=== PATIENT | male | born 1940 | race Caucasian/White ===

== ENCOUNTER 2019-10-25 08:32 | Inpatient (IN) ==
[2019-10-25] MEDS ORDERED: Morphine Sulfate 2 MG/ML SYRINGE IVP ONE (08:44)
[2019-10-25] MEDS ORDERED: 0.9 % Sodium Chloride 1,000 ML IVC ONE (08:44)
[2019-10-25] MEDS ORDERED: Isovue-370 500 ML BOTTLE IVP ONE (08:46)
[2019-10-25 09:35] LABS: Basophils % 0.2 %; Hematocrit 44.5 % (37.5-50.1); Immature Granulocytes % 0.3 % (0-4); Lymphocytes # 0.3 K/mcL (0.6-4.6); Lymphocytes % 4.8 %; Mean Corpuscular HGB Conc 33.7 g/dL (31.6-35.5); Mean Corpuscular Hemoglobin 29.2 pg (28.0-33.3); Mean Corpuscular Volume 86.7 fL (83.0-100.0); Mean Platelet Volume 10.2 fL (9.4-12.4); Monocytes # 0.4 K/mcL (0.0-1.3); Monocytes % 6.5 %; Neutrophils # 5.2 K/mcL (1.6-8.9); Platelet Count 233 K/mcL (140-400); Red Blood Count 5.13 M/mcL (4.19-5.50); Red Cell Distribution Width 14.2 % (11.5-14.5); Segmented Neutrophils % 88.2 %; White Blood Count 5.8 K/mcL (4.3-11.1)
[2019-10-25 09:35] LABS: Bacteria,Urine Few per hpf (None-Few); Bilirubin,Urine Negative (Negative); Blood,Urine Negative (Negative); Clarity,Urine Clear (Clear); Color,Urine Light-Orange (Yellow); Glucose,Urine (UA) >=1000 mg/dL (Normal); Granular Casts,Urine Few per lpf (None Seen); Ketones,Urine 60 mg/dL (Negative); Leukocyte Esterase,Urine Negative (Negative); Nitrite,Urine Negative (Negative); PH,Urine 5.5 pH Units (5.0-8.0); Protein,Urine 30 mg/dL (Neg-Trace); RBC,Urine 0-3 per hpf (0-3); Specific Gravity,Urine > 1.030 (1.010-1.025); WBC,Urine 0-3 per hpf (0-3)
[2019-10-25 09:38] LABS: VBG HCO3 23 mEq/L (21-27); VBG PCO2 36 mmHg (41-51); VBG PH 7.41 pH Units (7.32-7.42); VBG PO2 172 mmHg (25-50)
[2019-10-25 09:42] LABS: Prothrombin Time 22.6 Seconds (9.4-12.1)
[2019-10-25 09:45] LABS: Activated Partial Thrombo Time 46.1 Seconds (26.0-36.0)
[2019-10-25 10:16] LABS: Troponin I < 0.03 ng/mL (< 0.04)
[2019-10-25 10:19] LABS: Lipase 9 Units/L (11-82)
[2019-10-25 11:01] LABS: Alanine Aminotransferase 11 Units/L (7-52); Albumin 3.4 g/dL (3.5-5.7); Albumin/Globulin Ratio 1.1 (1.1-2.2); Alkaline Phosphatase 60 Units/L (34-104); Aspartate Amino Transferase 14 Units/L (13-39); BUN/Creatinine Ratio 24 (6-26); Bilirubin,Direct 1.4 mg/dL (0.0-0.2); Bilirubin,Indirect 2.8 mg/dL (0.0-1.0); Bilirubin,Total 4.2 mg/dL (0.3-1.0); Blood Urea Nitrogen 23 mg/dL (8-23); Calcium 9.3 mg/dL (8.6-10.3); Carbon Dioxide 24 mEq/L (23-29); Chloride 102 mEq/L (98-107); Glucose 166 mg/dL (70-105); Osmolality,Calculated 291 (280-300); Potassium 3.8 mEq/L (3.5-5.1); Sodium 137 mEq/L (136-145); Total Protein 6.4 g/dL (6.4-8.9); eGFR For African Americans > 60 (> 60); eGFR For Non-African Americans > 60 (> 60)
[2019-10-25] MEDS ORDERED: Vancomycin 1,750 MG/517.5 ML IV.SOLN IVPB ONE (11:54)
[2019-10-25] MEDS ORDERED: Piperacillin/Tazobactam 3.375 GM in 0.9 % Sodium Chloride Mini Bag 100 ML IVPB ONE (11:54)
[2019-10-25] MEDS ORDERED: CefOXitin 1,000 MG VIAL ONE (13:58)
[2019-10-25] MEDS ORDERED: *HR* Midazolam HCl 2 MG/2 ML VIAL ONE (15:06)
[2019-10-25] MEDS ORDERED: Lidocaine -MPF 1% 5 ML AMPUL ONE (15:06)
[2019-10-25] MEDS ORDERED: *HR* Propofol 200 MG/20 ML VIAL IVP ONE (15:06)
[2019-10-25] MEDS ORDERED: *HR* FentaNYL (PF) 100 MCG/2 ML VIAL ONE ×3 (15:06→15:29)
[2019-10-25] MEDS ORDERED: *HR* Rocuronium Bromide 50 MG/5 ML VIAL ONE (16:00)
[2019-10-25] MEDS ORDERED: *HR* Remifentanil 2 MG VIAL IVP ONE (16:06)
[2019-10-25 16:10] LABS: INR 1.3; Prothrombin Time 14.9 Seconds (9.4-12.1)
[2019-10-25] MEDS ORDERED: Ondansetron 4 MG/2 ML VIAL ONE (16:26)
[2019-10-25] MEDS ORDERED: Dexamethasone 4 MG/ML VIAL ONE (16:26)
[2019-10-25] MEDS ORDERED: *HR* HYDROMORPHONE 2 MG/ML VIAL ONE (16:40)
[2019-10-25] MEDS ORDERED: *HR* Labetalol 20 MG/4 ML SYRINGE IVP ONE (17:35)
[2019-10-25] MEDS ORDERED: *HR* Dextrose 50 % in Water (Vial) 50 ML VIAL IVP PRN (17:45)
[2019-10-25] MEDS ORDERED: Dextrose Gel 15 GM/37.5 ML TUBE PO PRN ×2 (17:45)
[2019-10-25] MEDS ORDERED: *HR* Labetalol 20 MG/4 ML SYRINGE IVP PRN (17:45)
[2019-10-25] MEDS ORDERED: D5% in Water 1,000 ML IVC PRN (17:45)
[2019-10-25] MEDS ORDERED: Acetaminophen IV 1,000 MG/100 ML BAG IVPB PRN (17:45)
[2019-10-25] MEDS ORDERED: Fluticasone Propionate Nasal 50 MCG/SPRAY BOTTLE NS PRN (17:49)
[2019-10-25] MEDS ORDERED: *HR* Heparin 5,000 UNIT/ML VIAL SQ SCH (18:00)
[2019-10-25] MEDS ORDERED: Vancomycin 1,750 MG in 0.9 % Sodium Chloride 250 ML IVPB SCH (18:00)
[2019-10-25] MEDS: *HR* Metoprolol 5 MG/5 ML VIAL IVP PRN ×2 (18:04→22:30)
[2019-10-25] MEDS: 0.9 % Sodium Chloride 1,000 ML IVC SCH ×2 (18:14→20:30)
[2019-10-25] MEDS: Micafungin 100 MG in 0.9 % Sodium Chloride Mini Bag 100 ML IVPB SCH (18:14)
[2019-10-25] MEDS: *HR* Heparin 5,000 UNIT/ML VIAL SQ SCH (18:15)
[2019-10-25] MEDS: Insulin LISPRO 300 UNITS/3 ML VIAL SQ SCH ×2 (19:52→23:24)
[2019-10-25] MEDS: Piperacillin/Tazobactam 3.375 GM in 0.9 % Sodium Chloride Mini Bag 100 ML IVPB SCH (20:01)
[2019-10-25] MEDS ORDERED: Perflutren Lipid Microsphere 1.3 ML in 0.9 % Sodium Chloride 8.7 ML IVP ONE (21:14)
[2019-10-26] MEDS ORDERED: Vancomycin 1,500 MG/265 ML IV.SOLN IVPB SCH (01:00)
[2019-10-26] MEDS: Piperacillin/Tazobactam 3.375 GM in 0.9 % Sodium Chloride Mini Bag 100 ML IVPB SCH ×3 (03:38→19:50)
[2019-10-26] MEDS: Insulin LISPRO 300 UNITS/3 ML VIAL SQ SCH ×6 (03:40→23:24)
[2019-10-26 03:56] LABS: Basophils % 0.1 %; Hematocrit 41.1 % (37.5-50.1); INR 1.4; Immature Granulocytes % 0.3 % (0-4); Lymphocytes # 0.7 K/mcL (0.6-4.6); Lymphocytes % 9.6 %; Mean Corpuscular HGB Conc 31.6 g/dL (31.6-35.5); Mean Corpuscular Hemoglobin 28.3 pg (28.0-33.3); Mean Corpuscular Volume 89.5 fL (83.0-100.0); Mean Platelet Volume 9.8 fL (9.4-12.4); Monocytes # 0.4 K/mcL (0.0-1.3); Monocytes % 5.9 %; Neutrophils # 6.1 K/mcL (1.6-8.9); Platelet Count 246 K/mcL (140-400); Prothrombin Time 16.3 Seconds (9.4-12.1); Red Blood Count 4.59 M/mcL (4.19-5.50); Red Cell Distribution Width 14.7 % (11.5-14.5); Segmented Neutrophils % 84.1 %; White Blood Count 7.3 K/mcL (4.3-11.1)
[2019-10-26 03:59] LABS: Activated Partial Thrombo Time 33.9 Seconds (26.0-36.0)
[2019-10-26 04:06] LABS: Alanine Aminotransferase 11 Units/L (7-52); Albumin/Globulin Ratio 1.1 (1.1-2.2); Alkaline Phosphatase 49 Units/L (34-104); Aspartate Amino Transferase 11 Units/L (13-39); BUN/Creatinine Ratio 31 (6-26); Bilirubin,Direct 0.9 mg/dL (0.0-0.2); Bilirubin,Total 2.9 mg/dL (0.3-1.0); Blood Urea Nitrogen 26 mg/dL (8-23); Calcium 9.1 mg/dL (8.6-10.3); Carbon Dioxide 24 mEq/L (23-29); Chloride 109 mEq/L (98-107); Globulin 2.7 g/dL (2.4-3.5); Glucose 164 mg/dL (70-105); Osmolality,Calculated 302 (280-300); Phosphorous 2.7 mg/dL (2.7-4.5); Potassium 3.7 mEq/L (3.5-5.1); Sodium 142 mEq/L (136-145); Total Protein 5.7 g/dL (6.4-8.9); eGFR For African Americans > 60 (> 60); eGFR For Non-African Americans > 60 (> 60)
[2019-10-26 04:18] LABS: Thyroid Stimulating Hormone 0.968 mcIU/mL (0.340-5.600)
[2019-10-26] MEDS: 0.9 % Sodium Chloride 1,000 ML IVC SCH ×3 (04:45→19:52)
[2019-10-26 04:55] LABS: Troponin I 0.04 ng/mL (< 0.04)
[2019-10-26] MEDS: *HR* Heparin 5,000 UNIT/ML VIAL SQ SCH ×2 (05:30→15:51)
[2019-10-26] MEDS: Micafungin 100 MG in 0.9 % Sodium Chloride Mini Bag 100 ML IVPB SCH (07:46)
[2019-10-26 11:24] LABS: Troponin I 0.03 ng/mL (< 0.04)
[2019-10-26] MEDS ORDERED: Potassium Chloride 40 MEQ, Lidocaine 1% 2 ML in 0.9 % Sodium Chloride 500 ML IVPB ONE (11:34)
[2019-10-26] MEDS: Vancomycin 1,750 MG/517.5 ML IV.SOLN IVPB SCH (14:17)
[2019-10-26] MEDS ORDERED: *HR* Metoprolol 5 MG/5 ML VIAL IVP ONE (15:46)
[2019-10-26] MEDS: *HR* Metoprolol 5 MG/5 ML VIAL IVP SCH ×2 (15:50→23:21)
[2019-10-26 16:44] LABS: Magnesium < 0.5 mg/dL (1.6-2.6)
[2019-10-27] MEDS: Vancomycin 1,750 MG/517.5 ML IV.SOLN IVPB SCH ×2 (00:45→12:42)
[2019-10-27] MEDS: 0.9 % Sodium Chloride 1,000 ML IVC SCH ×3 (04:02→22:08)
[2019-10-27] MEDS: Piperacillin/Tazobactam 3.375 GM in 0.9 % Sodium Chloride Mini Bag 100 ML IVPB SCH ×3 (04:03→20:44)
[2019-10-27] MEDS: Insulin LISPRO 300 UNITS/3 ML VIAL SQ SCH ×4 (04:24→20:12)
[2019-10-27 04:48] LABS: Basophils % 0.1 %; Eosinophils % 0.1 %; Hematocrit 38.2 % (37.5-50.1); Hemoglobin 12.3 g/dL (12.9-16.9); Immature Granulocytes % 0.7 % (0-4); Lymphocytes # 0.7 K/mcL (0.6-4.6); Lymphocytes % 9.6 %; Mean Corpuscular HGB Conc 32.2 g/dL (31.6-35.5); Mean Corpuscular Hemoglobin 29.4 pg (28.0-33.3); Mean Corpuscular Volume 91.2 fL (83.0-100.0); Mean Platelet Volume 9.8 fL (9.4-12.4); Monocytes # 0.5 K/mcL (0.0-1.3); Monocytes % 7.1 %; Neutrophils # 5.8 K/mcL (1.6-8.9); Platelet Count 238 K/mcL (140-400); Red Blood Count 4.19 M/mcL (4.19-5.50); Segmented Neutrophils % 82.4 %; White Blood Count 7.1 K/mcL (4.3-11.1)
[2019-10-27] MEDS: *HR* Metoprolol 5 MG/5 ML VIAL IVP SCH ×3 (05:04→18:30)
[2019-10-27] MEDS: *HR* Heparin 5,000 UNIT/ML VIAL SQ SCH ×2 (05:04→16:29)
[2019-10-27 05:07] LABS: BUN/Creatinine Ratio 40 (6-26); Blood Urea Nitrogen 24 mg/dL (8-23); Calcium 9.1 mg/dL (8.6-10.3); Carbon Dioxide 27 mEq/L (23-29); Chloride 113 mEq/L (98-107); Glucose 142 mg/dL (70-105); Osmolality,Calculated 308 (280-300); Potassium 3.7 mEq/L (3.5-5.1); Sodium 146 mEq/L (136-145); eGFR For African Americans > 60 (> 60); eGFR For Non-African Americans > 60 (> 60)
[2019-10-27] MEDS ORDERED: Potassium Chloride 40 MEQ, Lidocaine 1% 2 ML in 0.9 % Sodium Chloride 500 ML IVPB ONE (07:32)
[2019-10-27 08:08] LABS: Albumin 2.8 g/dL (3.5-5.7); Bilirubin,Direct 0.4 mg/dL (0.0-0.2); Bilirubin,Total 1.4 mg/dL (0.3-1.0); Globulin 2.7 g/dL (2.4-3.5); Magnesium 2.2 mg/dL (1.6-2.6); Phosphorous 1.6 mg/dL (2.7-4.5); Total Protein 5.5 g/dL (6.4-8.9)
[2019-10-27] MEDS ORDERED: Pantoprazole 40 MG VIAL IVP SCH (08:38)
[2019-10-27] MEDS ORDERED: Potassium Phosphate 44 MEQ in 0.9 % Sodium Chloride 250 ML IVPB ONE ×2 (08:39→22:12)
[2019-10-27] MEDS ORDERED: Fluconazole 400 MG/200 ML 400 MG/200 ML BAG IVPB SCH (09:00)
[2019-10-27] MEDS ORDERED: *HR* Labetalol 20 MG/4 ML SYRINGE IVP PRN (16:15)
[2019-10-27] MEDS ORDERED: Dextrose Gel 15 GM/37.5 ML TUBE PO PRN ×2 (16:15)
[2019-10-27] MEDS ORDERED: Fluticasone Propionate Nasal 50 MCG/SPRAY BOTTLE NS PRN (16:15)
[2019-10-27] MEDS ORDERED: D5% in Water 1,000 ML IVC PRN (16:15)
[2019-10-27] MEDS ORDERED: Acetaminophen IV 1,000 MG/100 ML BAG IVPB PRN (16:15)
[2019-10-27] MEDS ORDERED: *HR* Dextrose 50 % in Water (Vial) 50 ML VIAL IVP PRN (16:15)
[2019-10-27] MEDS: Pantoprazole 40 MG VIAL IVP SCH (16:30)
[2019-10-27 20:58] LABS: Hematocrit 39.6 % (37.5-50.1); Hemoglobin 12.3 g/dL (12.9-16.9)
[2019-10-27 21:27] LABS: BUN/Creatinine Ratio 43 (6-26); Blood Urea Nitrogen 24 mg/dL (8-23); Calcium 9.3 mg/dL (8.6-10.3); Carbon Dioxide 25 mEq/L (23-29); Chloride 113 mEq/L (98-107); Glucose 130 mg/dL (70-105); Magnesium 2.2 mg/dL (1.6-2.6); Osmolality,Calculated 308 (280-300); Phosphorous 1.7 mg/dL (2.7-4.5); Potassium 3.6 mEq/L (3.5-5.1); Sodium 146 mEq/L (136-145); eGFR For African Americans > 60 (> 60); eGFR For Non-African Americans > 60 (> 60)
[2019-10-28] MEDS ORDERED: Vancomycin 1,750 MG/517.5 ML IV.SOLN IVPB SCH (01:00)
[2019-10-28] MEDS: Vancomycin 2,000 MG/520 ML IV.SOLN IVPB SCH ×2 (01:33→14:19)
[2019-10-28] MEDS: *HR* Metoprolol 5 MG/5 ML VIAL IVP SCH ×4 (01:33→17:19)
[2019-10-28] MEDS: Insulin LISPRO 300 UNITS/3 ML VIAL SQ SCH ×7 (02:01→21:34)
[2019-10-28] MEDS: Piperacillin/Tazobactam 3.375 GM in 0.9 % Sodium Chloride Mini Bag 100 ML IVPB SCH ×3 (04:46→21:04)
[2019-10-28 05:16] LABS: Basophils % 0.2 %; Eosinophils # 0.1 K/mcL (0.0-0.6); Eosinophils % 1.4 %; Hematocrit 38.3 % (37.5-50.1); Hemoglobin 11.7 g/dL (12.9-16.9); Immature Granulocytes % 0.6 % (0-4); Lymphocytes # 0.8 K/mcL (0.6-4.6); Lymphocytes % 12.6 %; Mean Corpuscular HGB Conc 30.5 g/dL (31.6-35.5); Mean Corpuscular Hemoglobin 28.3 pg (28.0-33.3); Mean Corpuscular Volume 92.7 fL (83.0-100.0); Mean Platelet Volume 9.4 fL (9.4-12.4); Monocytes # 0.4 K/mcL (0.0-1.3); Monocytes % 6.2 %; Platelet Count 261 K/mcL (140-400); Red Blood Count 4.13 M/mcL (4.19-5.50); Red Cell Distribution Width 14.8 % (11.5-14.5); White Blood Count 6.3 K/mcL (4.3-11.1)
[2019-10-28] MEDS: Pantoprazole 40 MG VIAL IVP SCH ×2 (05:56→17:19)
[2019-10-28] MEDS: *HR* Heparin 5,000 UNIT/ML VIAL SQ SCH ×2 (05:56→17:19)
[2019-10-28 06:45] LABS: BUN/Creatinine Ratio 41 (6-26); Blood Urea Nitrogen 24 mg/dL (8-23); Carbon Dioxide 29 mEq/L (23-29); Chloride 114 mEq/L (98-107); Glucose 122 mg/dL (70-105); Magnesium 2.2 mg/dL (1.6-2.6); Osmolality,Calculated 313 (280-300); Potassium 3.8 mEq/L (3.5-5.1); Sodium 149 mEq/L (136-145); eGFR For African Americans > 60 (> 60); eGFR For Non-African Americans > 60 (> 60)
[2019-10-28] MEDS: Fluconazole 400 MG/200 ML 400 MG/200 ML BAG IVPB SCH (07:30)
[2019-10-28] MEDS: 0.9 % Sodium Chloride 1,000 ML IVC SCH ×2 (08:36→21:10)
[2019-10-29] MEDS: 0.9 % Sodium Chloride 1,000 ML IVC SCH (00:21)
[2019-10-29] MEDS: *HR* Metoprolol 5 MG/5 ML VIAL IVP SCH ×5 (00:21→23:15)
[2019-10-29] MEDS: Vancomycin 2,000 MG/520 ML IV.SOLN IVPB SCH ×2 (00:21→15:31)
[2019-10-29] MEDS: Piperacillin/Tazobactam 3.375 GM in 0.9 % Sodium Chloride Mini Bag 100 ML IVPB SCH ×3 (04:37→20:10)
[2019-10-29] MEDS: Pantoprazole 40 MG VIAL IVP SCH ×2 (05:26→17:57)
[2019-10-29] MEDS: *HR* Heparin 5,000 UNIT/ML VIAL SQ SCH ×2 (05:26→17:57)
[2019-10-29] MEDS: Insulin LISPRO 300 UNITS/3 ML VIAL SQ SCH ×4 (08:10→20:38)
[2019-10-29] MEDS: Fluconazole 400 MG/200 ML 400 MG/200 ML BAG IVPB SCH (10:05)
[2019-10-29] MEDS ORDERED: Ringers Solution, Lactated 1,000 ML IVC SCH (12:45)
[2019-10-30 00:33] LABS: Hematocrit 38.1 % (37.5-50.1); Hemoglobin 12.6 g/dL (12.9-16.9); Mean Corpuscular HGB Conc 33.1 g/dL (31.6-35.5); Mean Corpuscular Hemoglobin 29.1 pg (28.0-33.3); Mean Platelet Volume 9.6 fL (9.4-12.4); Platelet Count 267 K/mcL (140-400); Red Blood Count 4.33 M/mcL (4.19-5.50); White Blood Count 5.9 K/mcL (4.3-11.1)
[2019-10-30 00:50] LABS: BUN/Creatinine Ratio 24 (6-26); Blood Urea Nitrogen 14 mg/dL (8-23); Carbon Dioxide 25 mEq/L (23-29); Chloride 108 mEq/L (98-107); Glucose 149 mg/dL (70-105); Osmolality,Calculated 293 (280-300); Potassium 3.3 mEq/L (3.5-5.1); Sodium 140 mEq/L (136-145); eGFR For African Americans > 60 (> 60); eGFR For Non-African Americans > 60 (> 60)
[2019-10-30] MEDS: Vancomycin 2,000 MG/520 ML IV.SOLN IVPB SCH (01:15)
[2019-10-30] MEDS: Piperacillin/Tazobactam 3.375 GM in 0.9 % Sodium Chloride Mini Bag 100 ML IVPB SCH ×3 (04:14→20:39)
[2019-10-30] MEDS: Pantoprazole 40 MG VIAL IVP SCH ×2 (06:32→17:37)
[2019-10-30] MEDS: *HR* Heparin 5,000 UNIT/ML VIAL SQ SCH ×2 (06:32→17:38)
[2019-10-30] MEDS: *HR* Metoprolol 5 MG/5 ML VIAL IVP SCH (06:33)
[2019-10-30] MEDS: Insulin LISPRO 300 UNITS/3 ML VIAL SQ SCH ×4 (08:04→20:38)
[2019-10-30] MEDS: Fluconazole 400 MG/200 ML 400 MG/200 ML BAG IVPB SCH (08:05)
[2019-10-30] MEDS: Metoprolol XL (24 HR) Succ 25 MG TAB.ER.24H PO SCH (12:03)
[2019-10-30] MEDS: amLODIPine 5 MG TABLET PO SCH (17:38)
[2019-10-30] MEDS ORDERED: Simethicone 80 MG TAB.CHEW PO PRN (17:46)
[2019-10-30] MEDS ORDERED: *HR* Warfarin 2 MG TABLET PO ONE (18:00)
[2019-10-30] MEDS ORDERED: Warfarin perPT PO PRN (18:00)
[2019-10-30] MEDS: Aspirin Enteric Coated 81 MG Tablet PO SCH (20:39)
[2019-10-30] MEDS: cloNIDine HCL 0.1 MG TABLET PO SCH (20:39)
[2019-10-31] MEDS: Piperacillin/Tazobactam 3.375 GM in 0.9 % Sodium Chloride Mini Bag 100 ML IVPB SCH ×3 (05:28→20:46)
[2019-10-31] MEDS: *HR* Heparin 5,000 UNIT/ML VIAL SQ SCH ×2 (05:29→17:02)
[2019-10-31] MEDS: Pantoprazole 40 MG VIAL IVP SCH (05:29)
[2019-10-31 07:09] LABS: INR 1.2; Prothrombin Time 13.3 Seconds (9.4-12.1)
[2019-10-31 07:11] LABS: Hematocrit 36.3 % (37.5-50.1); Mean Corpuscular HGB Conc 33.1 g/dL (31.6-35.5); Mean Corpuscular Hemoglobin 29.1 pg (28.0-33.3); Mean Corpuscular Volume 87.9 fL (83.0-100.0); Mean Platelet Volume 9.5 fL (9.4-12.4); Platelet Count 238 K/mcL (140-400); Red Blood Count 4.13 M/mcL (4.19-5.50); Red Cell Distribution Width 14.2 % (11.5-14.5); White Blood Count 5.2 K/mcL (4.3-11.1)
[2019-10-31 07:31] LABS: BUN/Creatinine Ratio 13 (6-26); Blood Urea Nitrogen 9 mg/dL (8-23); Carbon Dioxide 28 mEq/L (23-29); Chloride 108 mEq/L (98-107); Glucose 142 mg/dL (70-105); Osmolality,Calculated 293 (280-300); Potassium 3.1 mEq/L (3.5-5.1); Sodium 141 mEq/L (136-145); eGFR For African Americans > 60 (> 60); eGFR For Non-African Americans > 60 (> 60)
[2019-10-31] MEDS: Insulin LISPRO 300 UNITS/3 ML VIAL SQ SCH ×3 (08:08→16:37)
[2019-10-31] MEDS: Aspirin Enteric Coated 81 MG Tablet PO SCH ×2 (08:08→20:46)
[2019-10-31] MEDS: Losartan/HCTZ 50-12.5 TABLET PO SCH (08:08)
[2019-10-31] MEDS: cloNIDine HCL 0.1 MG TABLET PO SCH ×2 (08:09→20:46)
[2019-10-31] MEDS: Fluconazole 400 MG/200 ML 400 MG/200 ML BAG IVPB SCH (08:09)
[2019-10-31] MEDS: Metoprolol XL (24 HR) Succ 25 MG TAB.ER.24H PO SCH (08:09)
[2019-10-31] MEDS: Acetaminophen 325 MG TABLET PO PRN ×2 (10:50→18:27)
[2019-10-31] MEDS: amLODIPine 5 MG TABLET PO SCH (17:03)
[2019-10-31] MEDS ORDERED: *HR* Warfarin 3 MG TABLET PO ONE (18:00)
[2019-11-01 03:30] LABS: INR 1.2; Prothrombin Time 13.3 Seconds (9.4-12.1)
[2019-11-01] MEDS: Insulin LISPRO 300 UNITS/3 ML VIAL SQ SCH ×3 (03:45→11:44)
[2019-11-01] MEDS: Piperacillin/Tazobactam 3.375 GM in 0.9 % Sodium Chloride Mini Bag 100 ML IVPB SCH ×2 (04:13→11:45)
[2019-11-01] MEDS: *HR* Heparin 5,000 UNIT/ML VIAL SQ SCH (06:12)
[2019-11-01] MEDS: 0.9 % Sodium Chloride 1,000 ML IVC SCH (08:33)
[2019-11-01] MEDS: cloNIDine HCL 0.1 MG TABLET PO SCH (08:34)
[2019-11-01] MEDS: Aspirin Enteric Coated 81 MG Tablet PO SCH (08:34)
[2019-11-01] MEDS: Losartan/HCTZ 50-12.5 TABLET PO SCH (08:34)
[2019-11-01] MEDS: Metoprolol XL (24 HR) Succ 25 MG TAB.ER.24H PO SCH (08:35)
[2019-11-01] MEDS ORDERED: Fluconazole 100 MG TABLET PO SCH (09:00)
[2019-11-01 11:26] VITALS: BP 156/82
[2019-11-01] MEDS ORDERED: *HR* Warfarin 3 MG TABLET PO ONE (18:00)
== END 2019-11-01 17:13 | disposition home health service (06) | DRG 329 ==
LOC: EMEROOARM 08:32 → 3BNU 08:32 → ICNU 17:26 → 3ANU 10-28 13:09
PROVIDERS: ADMIT Surgery; ATTEND Surgery

== ENCOUNTER 2019-11-15 13:58 | Inpatient (IN) ==
[2019-11-15] MEDS ORDERED: *HR* OxyCODONE Immed Rel 5 MG TABLET PO PRN (14:27)
[2019-11-15] MEDS ORDERED: Ondansetron 4 MG/2 ML VIAL IVP ONE (14:27)
[2019-11-15] MEDS ORDERED: *HR* HYDROmorphone PF 0.5 MG/0.5 ML SYRINGE IVP PRN (14:27)
[2019-11-15] MEDS ORDERED: Ringers Solution, Lactated 1,000 ML IVC SCH (14:30)
[2019-11-15] MEDS ORDERED: Vancomycin 1,500 MG/265 ML IV.SOLN IVPB ONE (15:00)
[2019-11-15] MEDS ORDERED: Famotidine 20 MG/2 ML VIAL IVP ONE (16:58)
[2019-11-15] MEDS ORDERED: Acetaminophen IV 1,000 MG/100 ML BAG IVPB ONE (16:58)
[2019-11-15] MEDS ORDERED: Vancomycin 1,000 MG VIAL ONE (17:36)
[2019-11-15] MEDS ORDERED: Ethanol\\Acetic Acid\\Na Ace\\Ben 1,000 ML IRRIG.SOLN IR ONE (17:36)
[2019-11-15] MEDS ORDERED: *HR* Propofol 200 MG/20 ML VIAL IVP ONE (17:42)
[2019-11-15] MEDS ORDERED: *HR* Succinylcholine 200 MG/10 ML VIAL IVP ONE (17:42)
[2019-11-15] MEDS ORDERED: Lidocaine -MPF 2% 2 ML VIAL ONE (17:42)
[2019-11-15] MEDS ORDERED: *HR* FentaNYL (PF) 100 MCG/2 ML VIAL ONE (17:44)
[2019-11-15] MEDS ORDERED: *HR* PHENYLEPHRINE 1,000 MCG/10 ML SYRINGE IVP ONE ×2 (18:04→18:22)
[2019-11-15] MEDS ORDERED: EPHEDrine 50 MG/ML VIAL ONE (18:19)
[2019-11-15] MEDS ORDERED: Ondansetron 4 MG/2 ML VIAL ONE (18:36)
[2019-11-15] MEDS ORDERED: Ondansetron 4 MG/2 ML VIAL IVP PRN (19:46)
[2019-11-15] MEDS ORDERED: Sennosides 8.6 MG TABLET PO PRN (19:46)
[2019-11-15] MEDS ORDERED: *HR* Dextrose 50 % in Water (Vial) 50 ML VIAL IVP PRN (19:46)
[2019-11-15] MEDS ORDERED: *HR* Promethazine 25 MG/ML VIAL IVP PRN (19:46)
[2019-11-15] MEDS ORDERED: Dextrose Gel 15 GM/37.5 ML TUBE PO PRN ×2 (19:46)
[2019-11-15] MEDS ORDERED: MOM Conc 10 ML UD.LIQ PO PRN (19:46)
[2019-11-15] MEDS ORDERED: Naloxone 0.4 MG/ML INJ IVP PRN (19:46)
[2019-11-15] MEDS ORDERED: D5% in Water 1,000 ML IVC PRN (19:46)
[2019-11-15] MEDS ORDERED: Fluticasone Propionate Nasal 50 MCG/SPRAY BOTTLE NS PRN (19:46)
[2019-11-15] MEDS ORDERED: Insulin NPH 100 UNIT/ML (x5UNIT) SQ SCH (21:00)
[2019-11-15] MEDS: Insulin LISPRO 300 UNITS/3 ML VIAL SQ SCH (21:10)
[2019-11-15] MEDS: amLODIPine 5 MG TABLET PO SCH (21:25)
[2019-11-15 22:29] LABS: Hematocrit 37.5 % (37.5-50.1)
[2019-11-15 22:31] LABS: Hemoglobin 11.9 g/dL (12.9-16.9)
[2019-11-16] MEDS: Vancomycin 1,500 MG/265 ML IV.SOLN IVPB SCH ×2 (05:27→17:43)
[2019-11-16] MEDS: HYDROcodone BIT/Homatropine 5 MG TABLET PO PRN ×3 (05:29→21:30)
[2019-11-16 05:34] LABS: Basophils % 0.3 %; Eosinophils # 0.1 K/mcL (0.0-0.6); Eosinophils % 1.3 %; Hematocrit 36.2 % (37.5-50.1); Hemoglobin 11.7 g/dL (12.9-16.9); Immature Granulocytes % 0.3 % (0-4); Lymphocytes # 1.5 K/mcL (0.6-4.6); Lymphocytes % 23.9 %; Mean Corpuscular HGB Conc 32.3 g/dL (31.6-35.5); Mean Corpuscular Hemoglobin 29.3 pg (28.0-33.3); Mean Corpuscular Volume 90.5 fL (83.0-100.0); Mean Platelet Volume 10.3 fL (9.4-12.4); Monocytes # 0.6 K/mcL (0.0-1.3); Monocytes % 9.4 %; Neutrophils # 3.9 K/mcL (1.6-8.9); Platelet Count 179 K/mcL (140-400); Red Cell Distribution Width 15.1 % (11.5-14.5); Segmented Neutrophils % 64.8 %; White Blood Count 6.1 K/mcL (4.3-11.1)
[2019-11-16 05:39] LABS: INR 1.2; Prothrombin Time 13.8 Seconds (9.4-12.1)
[2019-11-16 05:51] LABS: BUN/Creatinine Ratio 27 (6-26); Blood Urea Nitrogen 23 mg/dL (8-23); Calcium 9.4 mg/dL (8.6-10.3); Carbon Dioxide 27 mEq/L (23-29); Chloride 103 mEq/L (98-107); Glucose 96 mg/dL (70-105); Osmolality,Calculated 286 (280-300); Potassium 3.5 mEq/L (3.5-5.1); Sodium 136 mEq/L (136-145); eGFR For African Americans > 60 (> 60); eGFR For Non-African Americans > 60 (> 60)
[2019-11-16] MEDS: Losartan/HCTZ 50-12.5 TABLET PO SCH (09:47)
[2019-11-16] MEDS: Aspirin 81 MG TAB.CHEW PO SCH (09:48)
[2019-11-16] MEDS: Multivit/Ca/Min/Fe/FA 1 TAB TABLET PO SCH (09:49)
[2019-11-16] MEDS: Ascorbic Acid 500 MG TABLET PO SCH ×2 (09:50→17:33)
[2019-11-16] MEDS: Insulin LISPRO 300 UNITS/3 ML VIAL SQ SCH ×3 (11:02→17:35)
[2019-11-16] MEDS: Ringers Solution, Lactated 1,000 ML IVC SCH (11:02)
[2019-11-16] MEDS: (Empagliflozin [Jardiance] 10 MG) PO SCH (11:05)
[2019-11-16] MEDS ORDERED: Lidocaine -MPF 1% 5 ML AMPUL INFILT ONE (11:55)
[2019-11-16] MEDS: amLODIPine 5 MG TABLET PO SCH (17:34)
[2019-11-16] MEDS: *HR* Enoxaparin 120 MG/0.8 ML SYRINGE SQ SCH (17:36)
[2019-11-16] MEDS: *HR* Warfarin 3 MG TABLET PO SCH (17:39)
[2019-11-17] MEDS: Insulin NPH 100 UNIT/ML (x5UNIT) SQ SCH ×2 (00:01→21:16)
[2019-11-17] MEDS: Insulin LISPRO 300 UNITS/3 ML VIAL SQ SCH ×5 (00:03→21:12)
[2019-11-17] MEDS: Ringers Solution, Lactated 1,000 ML IVC SCH ×4 (00:07→17:34)
[2019-11-17] MEDS: *HR* OxyCODONE Immed Rel 5 MG TABLET PO PRN ×2 (01:04→21:12)
[2019-11-17 05:09] LABS: Basophils % 0.2 %; Eosinophils # 0.1 K/mcL (0.0-0.6); Eosinophils % 2.6 %; Hematocrit 35.8 % (37.5-50.1); Hemoglobin 11.4 g/dL (12.9-16.9); Immature Granulocytes % 0.2 % (0-4); Lymphocytes # 1.2 K/mcL (0.6-4.6); Lymphocytes % 23.9 %; Mean Corpuscular HGB Conc 31.8 g/dL (31.6-35.5); Mean Corpuscular Hemoglobin 28.3 pg (28.0-33.3); Mean Corpuscular Volume 88.8 fL (83.0-100.0); Mean Platelet Volume 9.9 fL (9.4-12.4); Monocytes # 0.4 K/mcL (0.0-1.3); Monocytes % 8.1 %; Neutrophils # 3.2 K/mcL (1.6-8.9); Platelet Count 172 K/mcL (140-400); Red Blood Count 4.03 M/mcL (4.19-5.50); White Blood Count 4.9 K/mcL (4.3-11.1)
[2019-11-17 05:16] LABS: INR 1.2; Prothrombin Time 13.5 Seconds (9.4-12.1)
[2019-11-17 05:30] LABS: BUN/Creatinine Ratio 30 (6-26); Blood Urea Nitrogen 19 mg/dL (8-23); Calcium 9.5 mg/dL (8.6-10.3); Carbon Dioxide 27 mEq/L (23-29); Chloride 103 mEq/L (98-107); Glucose 86 mg/dL (70-105); Osmolality,Calculated 282 (280-300); Potassium 3.4 mEq/L (3.5-5.1); Sodium 135 mEq/L (136-145); eGFR For African Americans > 60 (> 60); eGFR For Non-African Americans > 60 (> 60)
[2019-11-17] MEDS: Vancomycin 1,500 MG/265 ML IV.SOLN IVPB SCH ×2 (06:26→17:34)
[2019-11-17] MEDS: *HR* Enoxaparin 120 MG/0.8 ML SYRINGE SQ SCH ×2 (06:45→17:27)
[2019-11-17] MEDS: Multivit/Ca/Min/Fe/FA 1 TAB TABLET PO SCH (08:06)
[2019-11-17] MEDS: Losartan/HCTZ 50-12.5 TABLET PO SCH (08:06)
[2019-11-17] MEDS: Ascorbic Acid 500 MG TABLET PO SCH ×2 (08:06→17:27)
[2019-11-17] MEDS: Aspirin 81 MG TAB.CHEW PO SCH (08:07)
[2019-11-17] MEDS: (Empagliflozin [Jardiance] 10 MG) PO SCH (08:10)
[2019-11-17] MEDS: amLODIPine 5 MG TABLET PO SCH (17:27)
[2019-11-17] MEDS: *HR* Warfarin 3 MG TABLET PO SCH (17:27)
[2019-11-18] MEDS: *HR* Enoxaparin 120 MG/0.8 ML SYRINGE SQ SCH ×2 (06:09→17:41)
[2019-11-18] MEDS: Vancomycin 1,500 MG/265 ML IV.SOLN IVPB SCH (06:09)
[2019-11-18] MEDS: Insulin LISPRO 300 UNITS/3 ML VIAL SQ SCH ×4 (07:43→21:13)
[2019-11-18] MEDS: Losartan/HCTZ 50-12.5 TABLET PO SCH (07:49)
[2019-11-18] MEDS: Aspirin 81 MG TAB.CHEW PO SCH (07:49)
[2019-11-18] MEDS: Ascorbic Acid 500 MG TABLET PO SCH ×2 (07:49→17:41)
[2019-11-18] MEDS: Multivit/Ca/Min/Fe/FA 1 TAB TABLET PO SCH (07:49)
[2019-11-18] MEDS: (Empagliflozin [Jardiance] 10 MG) PO SCH (07:49)
[2019-11-18] MEDS: amLODIPine 5 MG TABLET PO SCH (17:41)
[2019-11-18] MEDS: *HR* Warfarin 3 MG TABLET PO SCH (17:41)
[2019-11-18] MEDS: Vancomycin 1,250 MG/262.5 ML IV.SOLN IVPB SCH (18:28)
[2019-11-18] MEDS: Ringers Solution, Lactated 1,000 ML IVC SCH (18:31)
[2019-11-18] MEDS: Insulin NPH 100 UNIT/ML (x5UNIT) SQ SCH (21:14)
[2019-11-19] MEDS: Vancomycin 1,250 MG/262.5 ML IV.SOLN IVPB SCH ×2 (06:24→18:03)
[2019-11-19] MEDS: Insulin LISPRO 300 UNITS/3 ML VIAL SQ SCH ×4 (08:07→21:28)
[2019-11-19] MEDS ORDERED: cefTRIAXone 1,000 MG in 0.9 % Sodium Chloride Mini Bag 100 ML IVPB ONE (09:00)
[2019-11-19] MEDS: Ascorbic Acid 500 MG TABLET PO SCH ×2 (09:34→18:03)
[2019-11-19] MEDS: Multivit/Ca/Min/Fe/FA 1 TAB TABLET PO SCH (09:34)
[2019-11-19] MEDS: Aspirin 81 MG TAB.CHEW PO SCH (09:35)
[2019-11-19] MEDS: Losartan/HCTZ 50-12.5 TABLET PO SCH (09:35)
[2019-11-19] MEDS: *HR* Enoxaparin 120 MG/0.8 ML SYRINGE SQ SCH (09:35)
[2019-11-19] MEDS: (Empagliflozin [Jardiance] 10 MG) PO SCH (09:37)
[2019-11-19 14:06] LABS: BUN/Creatinine Ratio 16 (6-26); Blood Urea Nitrogen 13 mg/dL (8-23); eGFR For African Americans > 60 (> 60); eGFR For Non-African Americans > 60 (> 60)
[2019-11-19] MEDS ORDERED: Aminoglycoside Consult 1 EACH MC ONE (16:19)
[2019-11-19] MEDS: Pantoprazole 40 MG VIAL IVP SCH (18:03)
[2019-11-19] MEDS: *HR* Warfarin 3 MG TABLET PO SCH (18:03)
[2019-11-19] MEDS: Sucralfate 1 GM TABLET PO SCH (18:03)
[2019-11-19] MEDS: amLODIPine 5 MG TABLET PO SCH (18:03)
[2019-11-19] MEDS: Insulin NPH 100 UNIT/ML (x5UNIT) SQ SCH (21:28)
[2019-11-20 04:07] LABS: Hematocrit 36.4 % (37.5-50.1); Hemoglobin 11.6 g/dL (12.9-16.9); Mean Corpuscular HGB Conc 31.9 g/dL (31.6-35.5); Mean Corpuscular Hemoglobin 28.3 pg (28.0-33.3); Mean Corpuscular Volume 88.8 fL (83.0-100.0); Mean Platelet Volume 9.6 fL (9.4-12.4); Platelet Count 206 K/mcL (140-400); Red Cell Distribution Width 14.6 % (11.5-14.5); White Blood Count 4.2 K/mcL (4.3-11.1)
[2019-11-20] MEDS: Pantoprazole 40 MG VIAL IVP SCH (06:11)
[2019-11-20] MEDS: Vancomycin 1,250 MG/262.5 ML IV.SOLN IVPB SCH (06:11)
[2019-11-20] MEDS: Ascorbic Acid 500 MG TABLET PO SCH (08:05)
[2019-11-20] MEDS: Sucralfate 1 GM TABLET PO SCH (08:05)
[2019-11-20] MEDS: Losartan/HCTZ 50-12.5 TABLET PO SCH (08:05)
[2019-11-20] MEDS: Multivit/Ca/Min/Fe/FA 1 TAB TABLET PO SCH (08:05)
[2019-11-20] MEDS: Insulin LISPRO 300 UNITS/3 ML VIAL SQ SCH ×2 (08:06→12:00)
[2019-11-20] MEDS: (Empagliflozin [Jardiance] 10 MG) PO SCH (08:06)
[2019-11-20 11:34] LABS: INR 1.1; Prothrombin Time 12.9 Seconds (9.4-12.1)
[2019-11-20 11:57] VITALS: BP 131/78
[2019-11-20 12:16] LABS: BUN/Creatinine Ratio 14 (6-26); Blood Urea Nitrogen 11 mg/dL (8-23); C-Reactive Protein 26 mg/L (Less than 10); Calcium 9.8 mg/dL (8.6-10.3); Carbon Dioxide 29 mEq/L (23-29); Chloride 104 mEq/L (98-107); Glucose 138 mg/dL (70-105); Osmolality,Calculated 292 (280-300); Potassium 3.5 mEq/L (3.5-5.1); Sodium 140 mEq/L (136-145); eGFR For African Americans > 60 (> 60); eGFR For Non-African Americans > 60 (> 60)
[2019-11-20] MEDS ORDERED: Piperacillin/Tazobactam 3.375 GM in 0.9 % Sodium Chloride Mini Bag 100 ML IVPB SCH (16:00)
== END 2019-11-20 16:20 | DRG 481 ==
LOC: SAMDAY 13:58 → 3NENU 19:45
PROVIDERS: ADMIT Orthopaedic Surgery; ATTEND Orthopaedic Surgery

== ENCOUNTER 2020-01-29 06:02 | Inpatient (IN) ==
[2020-01-29] MEDS ORDERED: Isovue-370 500 ML BOTTLE IVP ONE (06:18)
[2020-01-29] MEDS ORDERED: *HR* FentaNYL (PF) 100 MCG/2 ML VIAL IVP ONE ×2 (06:19→08:01)
[2020-01-29] MEDS ORDERED: 0.9 % Sodium Chloride 1,000 ML IVC ONE (06:19)
[2020-01-29] MEDS ORDERED: Ondansetron 4 MG/2 ML VIAL IVP ONE (06:19)
[2020-01-29 06:30] LABS: Basophils % 0.2 %; Eosinophils % 0.3 %; Hemoglobin 18.3 g/dL (12.9-16.9); Immature Granulocytes % 0.1 % (0-4); Lymphocytes # 1.7 K/mcL (0.6-4.6); Lymphocytes % 19.4 %; Mean Corpuscular HGB Conc 32.1 g/dL (31.6-35.5); Mean Corpuscular Hemoglobin 26.9 pg (28.0-33.3); Mean Corpuscular Volume 83.8 fL (83.0-100.0); Mean Platelet Volume 9.9 fL (9.4-12.4); Monocytes # 0.6 K/mcL (0.0-1.3); Monocytes % 6.7 %; Neutrophils # 6.3 K/mcL (1.6-8.9); Platelet Count 283 K/mcL (140-400); Red Cell Distribution Width 14.6 % (11.5-14.5); Segmented Neutrophils % 73.3 %; White Blood Count 8.6 K/mcL (4.3-11.1)
[2020-01-29 06:42] LABS: INR 1.1; Prothrombin Time 12.5 Seconds (9.4-12.1)
[2020-01-29 06:44] LABS: Activated Partial Thrombo Time 37.5 Seconds (26.0-36.0)
[2020-01-29 07:04] LABS: Alanine Aminotransferase 9 Units/L (7-52); Albumin 4.2 g/dL (3.5-5.7); Albumin/Globulin Ratio 1.4 (1.1-2.2); Alkaline Phosphatase 73 Units/L (34-104); Amylase 36 Units/L (29-103); Aspartate Amino Transferase 12 Units/L (13-39); BUN/Creatinine Ratio 21 (6-26); Bilirubin,Direct 0.2 mg/dL (0.0-0.2); Bilirubin,Indirect 1.3 mg/dL (0.0-1.0); Bilirubin,Total 1.5 mg/dL (0.3-1.0); Blood Urea Nitrogen 24 mg/dL (8-23); Calcium 10.4 mg/dL (8.6-10.3); Carbon Dioxide 25 mEq/L (23-29); Chloride 102 mEq/L (98-107); Globulin 3.1 g/dL (2.4-3.5); Glucose 199 mg/dL (70-105); Lipase 17 Units/L (11-82); Osmolality,Calculated 294 (280-300); Potassium 3.5 mEq/L (3.5-5.1); Sodium 137 mEq/L (136-145); Total Protein 7.3 g/dL (6.4-8.9); eGFR For African Americans > 60 (> 60); eGFR For Non-African Americans > 60 (> 60)
[2020-01-29] MEDS ORDERED: Piperacillin/Tazobactam 3.375 GM in 0.9 % Sodium Chloride Mini Bag 100 ML IVPB ONE (07:50)
[2020-01-29 07:58] LABS: Adenovirus Not Detected (Not Detect); Bordetella Pertussis Not Detected (Not Detect); Chlamydophila pneumoniae Not Detected (Not Detect); Coronavirus 229E Not Detected (Not Detect); Coronavirus HKU1 Not Detected (Not Detect); Coronavirus NL63 Not Detected (Not Detect); Coronavirus OC43 Not Detected (Not Detect); Human Metapneumovirus Not Detected (Not Detect); Human Rhinovirus/Enterovirus Not Detected (Not Detect); Influenza A Subtype 2009 H1 Not Detected (Not Detect); Influenza B Not Detected (Not Detect); Mycoplasma pneumoniae Not Detected (Not Detect); Parainfluenza Virus 1 Not Detected (Not Detect); Parainfluenza Virus 2 Not Detected (Not Detect); Parainfluenza Virus 3 Not Detected (Not Detect); Parainfluenza Virus 4 Not Detected (Not Detect); Respiratory Syncytial Virus Not Detected (Not Detect); SARS-CoV-2 Not Detected (Not Detect)
[2020-01-29] MEDS ORDERED: 0.9 % Sodium Chloride 1,000 ML IVC SCH (08:00)
[2020-01-29] MEDS ORDERED: Naloxone 0.4 MG/ML INJ IVP PRN ×2 (08:05→12:26)
[2020-01-29] MEDS ORDERED: Ondansetron 4 MG/2 ML VIAL IVP PRN ×3 (08:05→12:26)
[2020-01-29] MEDS ORDERED: Ringers Solution, Lactated 1,000 ML IVC SCH (08:15)
[2020-01-29] MEDS ORDERED: *HR* Propofol 200 MG/20 ML VIAL IVP ONE (08:16)
[2020-01-29] MEDS ORDERED: *HR* FentaNYL (PF) 100 MCG/2 ML VIAL ONE ×2 (08:16→08:17)
[2020-01-29] MEDS ORDERED: *HR* Rocuronium Bromide 50 MG/5 ML VIAL ONE (08:17)
[2020-01-29] MEDS ORDERED: Lidocaine -MPF 2% 2 ML VIAL ONE (08:17)
[2020-01-29] MEDS ORDERED: *HR* Succinylcholine 200 MG/10 ML VIAL IVP ONE (08:17)
[2020-01-29] MEDS ORDERED: Lidocaine HCL 4 ML Topical Solution (Laryng-O-Jet Kit Sterile Pak) TP ONE (08:17)
[2020-01-29] MEDS ORDERED: Ringers Solution, Lactated 1,000 ML ONE (08:18)
[2020-01-29 08:25] LABS: Bilirubin,Urine Negative (Negative); Blood,Urine Negative (Negative); Clarity,Urine Clear (Clear); Color,Urine Light-Yellow (Yellow); Glucose,Urine (UA) >=1000 mg/dL (Normal); Hyaline Casts,Urine Many per lpf (None Seen); Ketones,Urine Negative (Negative); Leukocyte Esterase,Urine Negative (Negative); Mucus,Urine Few per lpf (None-Few); Nitrite,Urine Negative (Negative); Protein,Urine Trace mg/dL (Neg-Trace); Specific Gravity,Urine > 1.030 (1.010-1.025); Squamous Epithelial Cell,Urine Few per hpf (None-Few); Urobilinogen,Urine Normal (Normal); WBC,Urine 0-3 per hpf (0-3)
[2020-01-29] MEDS ORDERED: Albumin Human 5% 12.5 GM/250 ML IV.SOLN ONE ×2 (08:46→09:29)
[2020-01-29] MEDS ORDERED: *HR* PHENYLEPHRINE 1,000 MCG/10 ML SYRINGE IVP ONE ×2 (09:02→10:24)
[2020-01-29] MEDS ORDERED: *HR* HYDROmorphone 2 MG/ML SYRINGE IVP PRN (09:12)
[2020-01-29] MEDS ORDERED: EPHEDrine 50 MG/ML VIAL ONE (09:14)
[2020-01-29] MEDS ORDERED: *HR* Dextrose 50 % in Water (Vial) 50 ML VIAL IVP PRN ×2 (09:22→12:26)
[2020-01-29] MEDS ORDERED: Dextrose Gel 15 GM/37.5 ML TUBE PO PRN ×4 (09:22→12:26)
[2020-01-29] MEDS ORDERED: D5% in Water 1,000 ML IVC PRN ×2 (09:22→12:26)
[2020-01-29] MEDS ORDERED: *HR* Promethazine 25 MG/ML VIAL IVP PRN (09:33)
[2020-01-29] MEDS ORDERED: *HR* HYDROmorphone (PF) 1 MG/ML SYRINGE IVP PRN (09:33)
[2020-01-29] MEDS ORDERED: *HR* Labetalol 20 MG/4 ML SYRINGE IVP PRN (09:33)
[2020-01-29] MEDS ORDERED: *HR* HYDROMORPHONE 2 MG/ML VIAL ONE (09:52)
[2020-01-29] MEDS ORDERED: Dexamethasone 4 MG/ML VIAL ONE (09:52)
[2020-01-29] MEDS ORDERED: Neostigmine Methylsulfate 3 MG/3 ML SYRINGE ONE (10:09)
[2020-01-29] MEDS ORDERED: Insulin LISPRO 300 UNITS/3 ML VIAL SQ SCH ×4 (15:00→21:00)
[2020-01-29] MEDS: Acetaminophen IV 1,000 MG/100 ML INFUS..BTL IVPB SCH ×2 (15:03→17:58)
[2020-01-29] MEDS: Ringers Solution, Lactated 1,000 ML IVC SCH ×2 (15:03→23:19)
[2020-01-29] MEDS ORDERED: Piperacillin/Tazobactam 3.375 GM in 0.9 % Sodium Chloride Mini Bag 100 ML IVPB SCH (16:00)
[2020-01-29 16:04] LABS: Hematocrit 48.1 % (37.5-50.1); Mean Corpuscular HGB Conc 31.6 g/dL (31.6-35.5); Mean Corpuscular Hemoglobin 26.4 pg (28.0-33.3); Mean Corpuscular Volume 83.5 fL (83.0-100.0); Mean Platelet Volume 10.1 fL (9.4-12.4); Platelet Count 214 K/mcL (140-400); Red Blood Count 5.76 M/mcL (4.19-5.50); Red Cell Distribution Width 14.2 % (11.5-14.5)
[2020-01-29] MEDS: Morphine PCA 30 MG/ 30 ML 30 ML PCA.VIAL IVC PRN (16:04)
[2020-01-29 16:09] LABS: INR 1.3; Prothrombin Time 14.7 Seconds (9.4-12.1)
[2020-01-29 16:13] LABS: Hemoglobin 15.2 g/dL (12.9-16.9)
[2020-01-29] MEDS: Heparin 25,000UNIT/250ML 1/2NS 25,000 UNIT/250 ML IV.SOLN IVC SCH (16:55)
[2020-01-29] MEDS: Piperacillin/Tazobactam 3.375 GM in 0.9 % Sodium Chloride Mini Bag 100 ML IVPB SCH (16:55)
[2020-01-29] MEDS: Insulin LISPRO 300 UNITS/3 ML VIAL SQ SCH (17:59)
[2020-01-30] MEDS: Piperacillin/Tazobactam 3.375 GM in 0.9 % Sodium Chloride Mini Bag 100 ML IVPB SCH ×4 (00:07→23:21)
[2020-01-30] MEDS: Acetaminophen IV 1,000 MG/100 ML INFUS..BTL IVPB SCH ×5 (00:08→23:17)
[2020-01-30] MEDS: Insulin LISPRO 300 UNITS/3 ML VIAL SQ SCH ×5 (00:36→23:30)
[2020-01-30] MEDS ORDERED: *HR* Heparin 5,000 UNIT/ML VIAL IVP PRN (06:00)
[2020-01-30 06:46] LABS: Basophils % 0.2 %; Eosinophils % 0.2 %; Hematocrit 42.6 % (37.5-50.1); Immature Granulocytes % 0.2 % (0-4); Lymphocytes # 0.9 K/mcL (0.6-4.6); Lymphocytes % 15.2 %; Mean Corpuscular HGB Conc 30.5 g/dL (31.6-35.5); Mean Corpuscular Hemoglobin 26.3 pg (28.0-33.3); Mean Corpuscular Volume 86.1 fL (83.0-100.0); Mean Platelet Volume 10.9 fL (9.4-12.4); Monocytes # 0.5 K/mcL (0.0-1.3); Monocytes % 7.6 %; Neutrophils # 4.7 K/mcL (1.6-8.9); Platelet Count 164 K/mcL (140-400); Red Blood Count 4.95 M/mcL (4.19-5.50); Red Cell Distribution Width 14.6 % (11.5-14.5); Segmented Neutrophils % 76.6 %; White Blood Count 6.2 K/mcL (4.3-11.1)
[2020-01-30] MEDS: Ringers Solution, Lactated 1,000 ML IVC SCH ×3 (06:46→17:23)
[2020-01-30 07:01] LABS: Albumin 2.9 g/dL (3.5-5.7); Albumin/Globulin Ratio 1.5 (1.1-2.2); Bilirubin,Direct 0.3 mg/dL (0.0-0.2); Bilirubin,Indirect 1.8 mg/dL (0.0-1.0); Bilirubin,Total 2.1 mg/dL (0.3-1.0); Total Protein 4.9 g/dL (6.4-8.9)
[2020-01-30 07:02] LABS: BUN/Creatinine Ratio 28 (6-26); Blood Urea Nitrogen 23 mg/dL (8-23); Calcium 8.9 mg/dL (8.6-10.3); Carbon Dioxide 26 mEq/L (23-29); Chloride 106 mEq/L (98-107); Glucose 121 mg/dL (70-105); Magnesium 1.4 mg/dL (1.6-2.6); Osmolality,Calculated 291 (280-300); Potassium 3.6 mEq/L (3.5-5.1); Sodium 138 mEq/L (136-145); eGFR For African Americans > 60 (> 60); eGFR For Non-African Americans > 60 (> 60)
[2020-01-30] MEDS: Pantoprazole 40 MG VIAL IVP SCH (08:50)
[2020-01-30] MEDS ORDERED: Piperacillin/Tazobactam 3.375 GM VIAL ONE (08:52)
[2020-01-30] MEDS ORDERED: Chloraseptic Spray 177 ML BOTTLE MM PRN (08:58)
[2020-01-30] MEDS: Heparin 25,000UNIT/250ML 1/2NS 25,000 UNIT/250 ML IV.SOLN IVC SCH (09:19)
[2020-01-30 10:28] LABS: Estimated Average Glucose 137 mg/dl
[2020-01-30] MEDS: Morphine PCA 30 MG/ 30 ML 30 ML PCA.VIAL IVC PRN (13:13)
[2020-01-30] MEDS ORDERED: Magnesium Sulfate 1 GM/102 ML PIGGYBACK IVPB ONE (14:46)
[2020-01-31 01:26] LABS: Basophils % 0.3 %; Eosinophils # 0.1 K/mcL (0.0-0.6); Eosinophils % 1.6 %; Hemoglobin 12.9 g/dL (12.9-16.9); Immature Granulocytes % 0.3 % (0-4); Lymphocytes # 0.8 K/mcL (0.6-4.6); Lymphocytes % 13.2 %; Mean Corpuscular HGB Conc 30.7 g/dL (31.6-35.5); Mean Corpuscular Hemoglobin 26.5 pg (28.0-33.3); Mean Corpuscular Volume 86.4 fL (83.0-100.0); Mean Platelet Volume 10.3 fL (9.4-12.4); Monocytes # 0.4 K/mcL (0.0-1.3); Monocytes % 6.9 %; Neutrophils # 4.8 K/mcL (1.6-8.9); Platelet Count 165 K/mcL (140-400); Red Blood Count 4.86 M/mcL (4.19-5.50); Red Cell Distribution Width 14.5 % (11.5-14.5); Segmented Neutrophils % 77.7 %; White Blood Count 6.2 K/mcL (4.3-11.1)
[2020-01-31 01:45] LABS: BUN/Creatinine Ratio 29 (6-26); Blood Urea Nitrogen 19 mg/dL (8-23); Calcium 9.2 mg/dL (8.6-10.3); Carbon Dioxide 28 mEq/L (23-29); Chloride 107 mEq/L (98-107); Glucose 97 mg/dL (70-105); Magnesium 1.9 mg/dL (1.6-2.6); Osmolality,Calculated 292 (280-300); Phosphorous 1.3 mg/dL (2.7-4.5); Potassium 3.5 mEq/L (3.5-5.1); Sodium 140 mEq/L (136-145); eGFR For African Americans > 60 (> 60); eGFR For Non-African Americans > 60 (> 60)
[2020-01-31] MEDS: Heparin 25,000UNIT/250ML 1/2NS 25,000 UNIT/250 ML IV.SOLN IVC SCH ×2 (03:00→17:11)
[2020-01-31] MEDS ORDERED: 0.9 % Sodium Chloride 1,000 ML IVC SCH (04:30)
[2020-01-31] MEDS: Acetaminophen IV 1,000 MG/100 ML INFUS..BTL IVPB SCH ×4 (06:15→23:27)
[2020-01-31] MEDS: Insulin LISPRO 300 UNITS/3 ML VIAL SQ SCH ×4 (06:16→23:25)
[2020-01-31] MEDS: *HR* Heparin 5,000 UNIT/ML VIAL IVP PRN ×2 (06:55→21:21)
[2020-01-31] MEDS: Piperacillin/Tazobactam 3.375 GM in 0.9 % Sodium Chloride Mini Bag 100 ML IVPB SCH ×3 (08:33→23:26)
[2020-01-31] MEDS: Pantoprazole 40 MG VIAL IVP SCH (08:34)
[2020-01-31] MEDS ORDERED: D5% in 0.9% NACL 1,000 ML IVC SCH (15:30)
[2020-01-31] MEDS ORDERED: CloNIDine Patch 0.1 MG PATCH (WEEKLY) TD SCH (18:00)
[2020-01-31] MEDS: Morphine PCA 30 MG/ 30 ML 30 ML PCA.VIAL IVC PRN (20:20)
[2020-02-01 04:35] LABS: Basophils % 0.4 %; Eosinophils # 0.1 K/mcL (0.0-0.6); Eosinophils % 2.7 %; Hemoglobin 11.8 g/dL (12.9-16.9); Immature Granulocytes % 0.4 % (0-4); Lymphocytes # 0.9 K/mcL (0.6-4.6); Mean Corpuscular HGB Conc 30.3 g/dL (31.6-35.5); Mean Corpuscular Hemoglobin 26.3 pg (28.0-33.3); Mean Corpuscular Volume 87.1 fL (83.0-100.0); Mean Platelet Volume 10.5 fL (9.4-12.4); Monocytes # 0.4 K/mcL (0.0-1.3); Monocytes % 6.9 %; Neutrophils # 3.8 K/mcL (1.6-8.9); Platelet Count 162 K/mcL (140-400); Red Blood Count 4.48 M/mcL (4.19-5.50); Red Cell Distribution Width 14.3 % (11.5-14.5); Segmented Neutrophils % 72.6 %; White Blood Count 5.2 K/mcL (4.3-11.1)
[2020-02-01 04:44] LABS: BUN/Creatinine Ratio 28 (6-26); Blood Urea Nitrogen 17 mg/dL (8-23); Calcium 8.9 mg/dL (8.6-10.3); Carbon Dioxide 27 mEq/L (23-29); Chloride 107 mEq/L (98-107); Glucose 114 mg/dL (70-105); Magnesium 1.9 mg/dL (1.6-2.6); Osmolality,Calculated 292 (280-300); Phosphorous 1.8 mg/dL (2.7-4.5); Potassium 3.3 mEq/L (3.5-5.1); Sodium 140 mEq/L (136-145); eGFR For African Americans > 60 (> 60); eGFR For Non-African Americans > 60 (> 60)
[2020-02-01] MEDS: Acetaminophen IV 1,000 MG/100 ML INFUS..BTL IVPB SCH (05:46)
[2020-02-01] MEDS: Insulin LISPRO 300 UNITS/3 ML VIAL SQ SCH ×4 (05:47→22:05)
[2020-02-01] MEDS ORDERED: Potassium Phosphate 44 MEQ in 0.9 % Sodium Chloride 250 ML IVPB ONE (07:19)
[2020-02-01] MEDS: Pantoprazole 40 MG VIAL IVP SCH (07:34)
[2020-02-01] MEDS: Piperacillin/Tazobactam 3.375 GM in 0.9 % Sodium Chloride Mini Bag 100 ML IVPB SCH ×2 (07:35→15:50)
[2020-02-01] MEDS: Heparin 25,000UNIT/250ML 1/2NS 25,000 UNIT/250 ML IV.SOLN IVC SCH ×2 (07:35→19:30)
[2020-02-01 09:42] LABS: Acinetobacter baumannii by PCR Not Detected (Not Detect); Candida albicans by PCR Not Detected (Not Detect); Candida glabrata by PCR Not Detected (Not Detect); Candida krusei by PCR Not Detected (Not Detect); Candida parapsilosis by PCR Not Detected (Not Detect); Candida tropicalis by PCR Not Detected (Not Detect); Enterobacter cloacae Cmplx PCR Not Detected (Not Detect); Enterobacteriaceae by PCR Not Detected (Not Detect); Enterococcus by PCR Not Detected (Not Detect); Escherichia coli by PCR Not Detected (Not Detect); Klebsiella oxytoca by PCR Not Detected (Not Detect); Klebsiella pneumoniae by PCR Not Detected (Not Detect); Proteus by PCR Not Detected (Not Detect); Pseudomonas aeruginosa by PCR Not Detected (Not Detect); Serratia marcescens by PCR Not Detected (Not Detect); Staphylococcus aureus by PCR Not Detected (Not Detect); Staphylococcus by PCR Not Detected (Not Detect); Streptococcus agalactiae(B)PCR Not Detected (Not Detect); Streptococcus by PCR Not Detected (Not Detect); Streptococcus pneumoniae PCR Not Detected (Not Detect); Streptococcus pyogenes (A) PCR Not Detected (Not Detect)
[2020-02-01] MEDS ORDERED: Acetaminophen 325 MG TABLET PO PRN ×2 (10:06→10:08)
[2020-02-01] MEDS: *HR* Heparin 5,000 UNIT/ML VIAL IVP PRN (11:05)
[2020-02-01 13:04] LABS: Hematocrit 38.4 % (37.5-50.1); Hemoglobin 11.9 g/dL (12.9-16.9)
[2020-02-01] MEDS ORDERED: *HR* Labetalol 20 MG/4 ML SYRINGE IVP PRN (14:35)
[2020-02-01 16:46] LABS: Hemoglobin 11.8 g/dL (12.9-16.9)
[2020-02-01] MEDS: *HR* OxyCODONE Immed Rel 5 MG TABLET PO PRN (19:30)
[2020-02-02] MEDS: Piperacillin/Tazobactam 3.375 GM in 0.9 % Sodium Chloride Mini Bag 100 ML IVPB SCH ×3 (00:06→17:06)
[2020-02-02 00:28] LABS: Basophils % 0.2 %; Eosinophils # 0.1 K/mcL (0.0-0.6); Eosinophils % 2.5 %; Hematocrit 35.3 % (37.5-50.1); Hemoglobin 11.2 g/dL (12.9-16.9); Immature Granulocytes % 0.6 % (0-4); Lymphocytes # 0.9 K/mcL (0.6-4.6); Lymphocytes % 17.6 %; Mean Corpuscular HGB Conc 31.7 g/dL (31.6-35.5); Mean Corpuscular Hemoglobin 27.3 pg (28.0-33.3); Mean Corpuscular Volume 86.1 fL (83.0-100.0); Mean Platelet Volume 10.4 fL (9.4-12.4); Monocytes # 0.4 K/mcL (0.0-1.3); Monocytes % 8.7 %; Neutrophils # 3.4 K/mcL (1.6-8.9); Platelet Count 160 K/mcL (140-400); Red Cell Distribution Width 14.1 % (11.5-14.5); Segmented Neutrophils % 70.4 %; White Blood Count 4.8 K/mcL (4.3-11.1)
[2020-02-02] MEDS ORDERED: *HR* OxyCODONE Immed Rel 5 MG TABLET PO STA (00:32)
[2020-02-02 00:38] LABS: BUN/Creatinine Ratio 27 (6-26); Blood Urea Nitrogen 13 mg/dL (8-23); Calcium 8.8 mg/dL (8.6-10.3); Carbon Dioxide 27 mEq/L (23-29); Chloride 106 mEq/L (98-107); Glucose 138 mg/dL (70-105); Magnesium 1.9 mg/dL (1.6-2.6); Osmolality,Calculated 290 (280-300); Phosphorous 1.8 mg/dL (2.7-4.5); Potassium 3.3 mEq/L (3.5-5.1); Sodium 139 mEq/L (136-145); eGFR For African Americans > 60 (> 60); eGFR For Non-African Americans > 60 (> 60)
[2020-02-02] MEDS: Heparin 25,000UNIT/250ML 1/2NS 25,000 UNIT/250 ML IV.SOLN IVC SCH ×2 (07:49→20:04)
[2020-02-02] MEDS: Insulin LISPRO 300 UNITS/3 ML VIAL SQ SCH ×4 (07:54→20:43)
[2020-02-02] MEDS: *HR* OxyCODONE Immed Rel 5 MG TABLET PO PRN ×3 (08:02→23:06)
[2020-02-02] MEDS ORDERED: Isovue-370 500 ML BOTTLE IVP ONE (09:00)
[2020-02-02] MEDS: *HR* HYDROmorphone (PF) 1 MG/ML SYRINGE IVP PRN ×2 (13:08→20:05)
[2020-02-03 00:27] LABS: Basophils % 0.3 %; Eosinophils % 0.7 %; Hematocrit 40.6 % (37.5-50.1); Hemoglobin 12.8 g/dL (12.9-16.9); Immature Granulocytes % 0.7 % (0-4); Lymphocytes # 1.1 K/mcL (0.6-4.6); Lymphocytes % 18.4 %; Mean Corpuscular HGB Conc 31.5 g/dL (31.6-35.5); Mean Corpuscular Hemoglobin 27.1 pg (28.0-33.3); Mean Platelet Volume 10.2 fL (9.4-12.4); Monocytes # 0.5 K/mcL (0.0-1.3); Monocytes % 8.8 %; Neutrophils # 4.3 K/mcL (1.6-8.9); Platelet Count 218 K/mcL (140-400); Red Blood Count 4.72 M/mcL (4.19-5.50); Segmented Neutrophils % 71.1 %
[2020-02-03 00:44] LABS: BUN/Creatinine Ratio 29 (6-26); Blood Urea Nitrogen 16 mg/dL (8-23); Calcium 9.4 mg/dL (8.6-10.3); Carbon Dioxide 25 mEq/L (23-29); Chloride 105 mEq/L (98-107); Glucose 150 mg/dL (70-105); Magnesium 1.9 mg/dL (1.6-2.6); Osmolality,Calculated 294 (280-300); Phosphorous 3.2 mg/dL (2.7-4.5); Potassium 3.6 mEq/L (3.5-5.1); Sodium 140 mEq/L (136-145); eGFR For African Americans > 60 (> 60); eGFR For Non-African Americans > 60 (> 60)
[2020-02-03] MEDS: Piperacillin/Tazobactam 3.375 GM in 0.9 % Sodium Chloride Mini Bag 100 ML IVPB SCH ×3 (00:45→15:41)
[2020-02-03] MEDS: Insulin LISPRO 300 UNITS/3 ML VIAL SQ SCH ×4 (08:19→19:29)
[2020-02-03] MEDS: Heparin 25,000UNIT/250ML 1/2NS 25,000 UNIT/250 ML IV.SOLN IVC SCH ×2 (08:20→20:08)
[2020-02-03] MEDS: *HR* HYDROmorphone (PF) 1 MG/ML SYRINGE IVP PRN ×2 (08:20→15:42)
[2020-02-03] MEDS: Metoclopramide 10 MG/2 ML VIAL IVP SCH ×2 (10:19→15:41)
[2020-02-03] MEDS: D5% in 0.9% NACL 1,000 ML IVC SCH (13:20)
[2020-02-04] MEDS: Piperacillin/Tazobactam 3.375 GM in 0.9 % Sodium Chloride Mini Bag 100 ML IVPB SCH ×4 (00:13→23:58)
[2020-02-04] MEDS: Metoclopramide 10 MG/2 ML VIAL IVP SCH ×4 (00:13→23:57)
[2020-02-04] MEDS: Insulin LISPRO 300 UNITS/3 ML VIAL SQ SCH ×4 (00:17→20:06)
[2020-02-04] MEDS: *HR* HYDROmorphone (PF) 1 MG/ML SYRINGE IVP PRN ×3 (00:20→13:29)
[2020-02-04 01:02] LABS: Basophils % 0.4 %; Eosinophils # 0.3 K/mcL (0.0-0.6); Eosinophils % 4.9 %; Hematocrit 35.4 % (37.5-50.1); Immature Granulocytes % 1.2 % (0-4); Lymphocytes # 1.4 K/mcL (0.6-4.6); Lymphocytes % 24.2 %; Mean Corpuscular HGB Conc 31.4 g/dL (31.6-35.5); Mean Corpuscular Hemoglobin 27.2 pg (28.0-33.3); Mean Corpuscular Volume 86.8 fL (83.0-100.0); Mean Platelet Volume 10.5 fL (9.4-12.4); Monocytes # 0.5 K/mcL (0.0-1.3); Monocytes % 7.9 %; Neutrophils # 3.5 K/mcL (1.6-8.9); Platelet Count 190 K/mcL (140-400); Red Blood Count 4.08 M/mcL (4.19-5.50); Red Cell Distribution Width 14.3 % (11.5-14.5); Segmented Neutrophils % 61.4 %; White Blood Count 5.7 K/mcL (4.3-11.1)
[2020-02-04 01:04] LABS: Hemoglobin 11.1 g/dL (12.9-16.9)
[2020-02-04 01:23] LABS: BUN/Creatinine Ratio 25 (6-26); Blood Urea Nitrogen 16 mg/dL (8-23); Calcium 9.1 mg/dL (8.6-10.3); Carbon Dioxide 30 mEq/L (23-29); Chloride 105 mEq/L (98-107); Glucose 136 mg/dL (70-105); Magnesium 1.8 mg/dL (1.6-2.6); Osmolality,Calculated 299 (280-300); Phosphorous 2.4 mg/dL (2.7-4.5); Potassium 3.1 mEq/L (3.5-5.1); Sodium 143 mEq/L (136-145); eGFR For African Americans > 60 (> 60); eGFR For Non-African Americans > 60 (> 60)
[2020-02-04] MEDS ORDERED: Pantoprazole 40 MG VIAL IVP SCH (06:30)
[2020-02-04] MEDS: D5% in 0.9% NACL 1,000 ML IVC SCH (06:36)
[2020-02-04] MEDS ORDERED: Potassium Phosphate 44 MEQ in 0.9 % Sodium Chloride 250 ML IVPB ONE (07:36)
[2020-02-04] MEDS: Heparin 25,000UNIT/250ML 1/2NS 25,000 UNIT/250 ML IV.SOLN IVC SCH ×2 (07:51→20:28)
[2020-02-04] MEDS: Pantoprazole 40 MG VIAL IVP SCH (16:46)
[2020-02-04] MEDS ORDERED: 0.9 % Sodium Chloride 500 ML IV ONE (23:35)
[2020-02-04] MEDS ORDERED: 0.9 % Sodium Chloride 1,000 ML ONE (23:35)
[2020-02-04] MEDS: *HR* Metoprolol 5 MG/5 ML VIAL IVP SCH (23:57)
[2020-02-05 01:02] LABS: Basophils % 0.4 %; Eosinophils # 0.2 K/mcL (0.0-0.6); Eosinophils % 2.8 %; Hematocrit 34.6 % (37.5-50.1); Hemoglobin 10.9 g/dL (12.9-16.9); Immature Granulocytes % 0.9 % (0-4); Lymphocytes # 1.4 K/mcL (0.6-4.6); Lymphocytes % 20.6 %; Mean Corpuscular HGB Conc 31.5 g/dL (31.6-35.5); Mean Corpuscular Volume 85.9 fL (83.0-100.0); Mean Platelet Volume 10.4 fL (9.4-12.4); Monocytes # 0.4 K/mcL (0.0-1.3); Monocytes % 6.4 %; Neutrophils # 4.8 K/mcL (1.6-8.9); Platelet Count 243 K/mcL (140-400); Red Blood Count 4.03 M/mcL (4.19-5.50); Red Cell Distribution Width 14.3 % (11.5-14.5); Segmented Neutrophils % 68.9 %; White Blood Count 6.9 K/mcL (4.3-11.1)
[2020-02-05 01:18] LABS: BUN/Creatinine Ratio 20 (6-26); Blood Urea Nitrogen 13 mg/dL (8-23); Carbon Dioxide 27 mEq/L (23-29); Chloride 109 mEq/L (98-107); Glucose 141 mg/dL (70-105); Magnesium 1.8 mg/dL (1.6-2.6); Osmolality,Calculated 302 (280-300); Phosphorous 2.7 mg/dL (2.7-4.5); Potassium 3.4 mEq/L (3.5-5.1); Sodium 145 mEq/L (136-145); eGFR For African Americans > 60 (> 60); eGFR For Non-African Americans > 60 (> 60)
[2020-02-05] MEDS: Potassium Chloride 40 MEQ, Lidocaine 1% 2 ML in 0.9 % Sodium Chloride 500 ML IVPB ONE ×2 (01:23→02:28)
[2020-02-05] MEDS: Insulin LISPRO 300 UNITS/3 ML VIAL SQ SCH ×4 (04:46→17:51)
[2020-02-05] MEDS: Pantoprazole 40 MG VIAL IVP SCH ×2 (05:54→17:52)
[2020-02-05] MEDS: *HR* Metoprolol 5 MG/5 ML VIAL IVP SCH ×3 (05:54→17:53)
[2020-02-05] MEDS ORDERED: GI Cocktail 40 ML EACH PO ONE (07:35)
[2020-02-05] MEDS ORDERED: Methylnaltrexone 12 MG/0.6 ML SYRINGE SQ ONE (07:36)
[2020-02-05] MEDS: Metoclopramide 10 MG/2 ML VIAL IVP SCH ×2 (09:01→16:01)
[2020-02-05] MEDS: Piperacillin/Tazobactam 3.375 GM in 0.9 % Sodium Chloride Mini Bag 100 ML IVPB SCH ×2 (09:01→16:01)
[2020-02-05] MEDS: Heparin 25,000UNIT/250ML 1/2NS 25,000 UNIT/250 ML IV.SOLN IVC SCH ×2 (10:10→21:42)
[2020-02-05] MEDS ORDERED: *HR* LORazepam 2 MG/ML VIAL IVP ONE (22:02)
[2020-02-06] MEDS: Piperacillin/Tazobactam 3.375 GM in 0.9 % Sodium Chloride Mini Bag 100 ML IVPB SCH ×3 (00:06→17:04)
[2020-02-06] MEDS: Metoclopramide 10 MG/2 ML VIAL IVP SCH ×2 (00:07→07:55)
[2020-02-06] MEDS: *HR* Metoprolol 5 MG/5 ML VIAL IVP SCH ×3 (00:07→11:13)
[2020-02-06] MEDS: Insulin LISPRO 300 UNITS/3 ML VIAL SQ SCH ×3 (00:55→17:04)
[2020-02-06 01:29] LABS: Hematocrit 28.9 % (37.5-50.1)
[2020-02-06 01:31] LABS: Hemoglobin 8.8 g/dL (12.9-16.9)
[2020-02-06 01:48] LABS: BUN/Creatinine Ratio 24 (6-26); Blood Urea Nitrogen 12 mg/dL (8-23); Calcium 8.7 mg/dL (8.6-10.3); Carbon Dioxide 29 mEq/L (23-29); Chloride 109 mEq/L (98-107); Glucose 100 mg/dL (70-105); Magnesium 1.8 mg/dL (1.6-2.6); Osmolality,Calculated 298 (280-300); Phosphorous 2.4 mg/dL (2.7-4.5); Potassium 3.2 mEq/L (3.5-5.1); Sodium 144 mEq/L (136-145); eGFR For African Americans > 60 (> 60); eGFR For Non-African Americans > 60 (> 60)
[2020-02-06] MEDS: Pantoprazole 40 MG VIAL IVP SCH (06:05)
[2020-02-06] MEDS: Heparin 25,000UNIT/250ML 1/2NS 25,000 UNIT/250 ML IV.SOLN IVC SCH (11:14)
[2020-02-06] MEDS ORDERED: Apixaban 5 MG TABLET PO SCH (11:45)
[2020-02-06] MEDS ORDERED: Potassium Phosphate 44 MEQ in 0.9 % Sodium Chloride 250 ML IVPB ONE (12:50)
[2020-02-06] MEDS ORDERED: Furosemide 40 MG/4 ML VIAL IVP ONE (18:30)
[2020-02-06] MEDS: Apixaban 5 MG TABLET PO SCH ×2 (20:57→22:46)
[2020-02-06 22:30] LABS: Hematocrit 30.6 % (37.5-50.1); Hemoglobin 9.7 g/dL (12.9-16.9)
[2020-02-07] MEDS: Piperacillin/Tazobactam 3.375 GM in 0.9 % Sodium Chloride Mini Bag 100 ML IVPB SCH ×2 (00:32→08:07)
[2020-02-07] MEDS: Insulin LISPRO 300 UNITS/3 ML VIAL SQ SCH ×5 (00:42→22:14)
[2020-02-07 05:52] LABS: Hematocrit 31.7 % (37.5-50.1); Mean Corpuscular HGB Conc 31.5 g/dL (31.6-35.5); Mean Corpuscular Hemoglobin 26.4 pg (28.0-33.3); Mean Corpuscular Volume 83.6 fL (83.0-100.0); Mean Platelet Volume 10.5 fL (9.4-12.4); Platelet Count 247 K/mcL (140-400); Red Blood Count 3.79 M/mcL (4.19-5.50); Red Cell Distribution Width 14.6 % (11.5-14.5); White Blood Count 4.6 K/mcL (4.3-11.1)
[2020-02-07 06:23] LABS: BUN/Creatinine Ratio 12 (6-26); Blood Urea Nitrogen 8 mg/dL (8-23); Calcium 9.3 mg/dL (8.6-10.3); Carbon Dioxide 30 mEq/L (23-29); Chloride 103 mEq/L (98-107); Glucose 129 mg/dL (70-105); Magnesium 1.8 mg/dL (1.6-2.6); Osmolality,Calculated 292 (280-300); Phosphorous 3.4 mg/dL (2.7-4.5); Potassium 3.2 mEq/L (3.5-5.1); Sodium 141 mEq/L (136-145); eGFR For African Americans > 60 (> 60); eGFR For Non-African Americans > 60 (> 60)
[2020-02-07] MEDS ORDERED: Furosemide 40 MG/4 ML VIAL IVP ONE (07:35)
[2020-02-07] MEDS: Losartan/HCTZ 50-12.5 TABLET PO SCH (08:06)
[2020-02-07] MEDS: Sucralfate 1 GM TABLET PO SCH ×2 (08:06→17:29)
[2020-02-07] MEDS: cloNIDine HCL 0.1 MG TABLET PO SCH ×2 (08:07→20:32)
[2020-02-07] MEDS: Apixaban 5 MG TABLET PO SCH ×2 (08:07→20:32)
[2020-02-07] MEDS: metroNIDAZOLE 500 MG TABLET PO SCH ×2 (14:25→20:32)
[2020-02-07] MEDS ORDERED: amLODIPine 5 MG TABLET PO SCH (18:00)
[2020-02-08 07:26] VITALS: BP 151/57
[2020-02-08 07:46] LABS: Hematocrit 29.9 % (37.5-50.1); Hemoglobin 9.6 g/dL (12.9-16.9); Mean Corpuscular HGB Conc 32.1 g/dL (31.6-35.5); Mean Corpuscular Volume 84.2 fL (83.0-100.0); Mean Platelet Volume 10.8 fL (9.4-12.4); Platelet Count 229 K/mcL (140-400); Red Blood Count 3.55 M/mcL (4.19-5.50); Red Cell Distribution Width 14.6 % (11.5-14.5); White Blood Count 5.1 K/mcL (4.3-11.1)
[2020-02-08 08:07] LABS: BUN/Creatinine Ratio 10 (6-26); Blood Urea Nitrogen 6 mg/dL (8-23); Calcium 9.5 mg/dL (8.6-10.3); Carbon Dioxide 31 mEq/L (23-29); Chloride 102 mEq/L (98-107); Glucose 138 mg/dL (70-105); Magnesium 1.7 mg/dL (1.6-2.6); Osmolality,Calculated 286 (280-300); Phosphorous 2.8 mg/dL (2.7-4.5); Potassium 2.9 mEq/L (3.5-5.1); Sodium 138 mEq/L (136-145); eGFR For African Americans > 60 (> 60); eGFR For Non-African Americans > 60 (> 60)
[2020-02-08] MEDS: Losartan/HCTZ 50-12.5 TABLET PO SCH (09:26)
[2020-02-08] MEDS: metroNIDAZOLE 500 MG TABLET PO SCH (09:26)
[2020-02-08] MEDS: Apixaban 5 MG TABLET PO SCH (09:26)
[2020-02-08] MEDS: Sucralfate 1 GM TABLET PO SCH (09:26)
[2020-02-08] MEDS: Insulin LISPRO 300 UNITS/3 ML VIAL SQ SCH ×2 (09:26→11:38)
[2020-02-08] MEDS: cloNIDine HCL 0.1 MG TABLET PO SCH (09:27)
[2020-02-08] MEDS ORDERED: FLU Vac QV 20-21 (6Month+)/PF 0.5 ML SYRINGE IM ONE (11:06)
[2020-02-11 08:53] LABS: Saccharomyces cerevisiae IgA 18.9 Units (0.0-24.9)
== END 2020-02-08 11:51 | disposition home health service (06) | DRG 853 ==
LOC: SUATTDRO → EMEROOARM 06:02 → 3ANU 08:40 → SUATTDRO 12:21 → 3ANU 12:21
PROVIDERS: ADMIT Pharmacist; ATTEND Family Medicine

== ENCOUNTER 2020-10-21 06:42 | Inpatient (IN) ==
[2020-10-21] MEDS ORDERED: Ondansetron 4 MG/2 ML VIAL ONE (07:40)
[2020-10-21] MEDS ORDERED: *HR* Rocuronium Bromide 50 MG/5 ML VIAL ONE ×2 (07:40→09:42)
[2020-10-21] MEDS ORDERED: *HR* Propofol 200 MG/20 ML VIAL IVP ONE (07:40)
[2020-10-21] MEDS ORDERED: *HR* Succinylcholine 200 MG/10 ML VIAL IVP ONE (07:40)
[2020-10-21] MEDS ORDERED: *HR* FentaNYL (PF) 100 MCG/2 ML VIAL ONE ×2 (07:40→09:53)
[2020-10-21] MEDS ORDERED: Lidocaine -MPF 2% 2 ML VIAL ONE (07:40)
[2020-10-21] MEDS ORDERED: cefOXitin 2,000 MG in Water for inj. (sterile) 20 ML IVP ONE (07:46)
[2020-10-21] MEDS ORDERED: *HR* HYDROmorphone PF 0.5 MG/0.5 ML SYRINGE IVP PRN (07:47)
[2020-10-21] MEDS ORDERED: *HR* Labetalol 20 MG/4 ML SYRINGE IVP PRN (07:47)
[2020-10-21] MEDS ORDERED: Ondansetron 4 MG/2 ML VIAL IVP PRN ×2 (07:47→11:53)
[2020-10-21] MEDS ORDERED: Acetaminophen IV 1,000 MG/100 ML BAG IVPB PRN (07:47)
[2020-10-21] MEDS ORDERED: Ringers Solution, Lactated 1,000 ML IVC SCH ×2 (08:00)
[2020-10-21] MEDS ORDERED: Acetaminophen IV 1,000 MG/100 ML BAG IVPB ONE (08:00)
[2020-10-21] MEDS ORDERED: *HR* Magnesium Sulfate 1 GM/2 ML VIAL ONE (08:03)
[2020-10-21] MEDS ORDERED: *HR* Phenylephrine 10 MG/ML VIAL ONE (08:03)
[2020-10-21] MEDS ORDERED: Albumin Human 5% 0 GM/0 ML IV.SOLN ONE (08:10)
[2020-10-21] MEDS ORDERED: EPHEDrine 50 MG/ML VIAL ONE (08:31)
[2020-10-21] MEDS ORDERED: Naloxone 0.4 MG/ML INJ IVP PRN (11:53)
[2020-10-21] MEDS ORDERED: Dextrose Gel 15 GM/37.5 ML TUBE PO PRN ×2 (11:53)
[2020-10-21] MEDS ORDERED: D5% in Water 1,000 ML IVC PRN (11:53)
[2020-10-21] MEDS ORDERED: *HR* Dextrose 50 % in Water (Vial) 50 ML VIAL IVP PRN (11:53)
[2020-10-21] MEDS: 0.9 % Sodium Chloride 1,000 ML IVC SCH ×2 (12:53→23:06)
[2020-10-21] MEDS: Insulin LISPRO 300 UNITS/3 ML VIAL SUBQ SCH ×2 (12:53→17:23)
[2020-10-21] MEDS: Acetaminophen IV 1,000 MG/100 ML BAG IVPB SCH ×2 (12:58→18:32)
[2020-10-21] MEDS: *HR* HYDROmorphone 20 MG/20 ML PCA IVC PRN (13:51)
[2020-10-21] MEDS: *HR* Heparin 5,000 UNIT/ML VIAL SQ SCH (14:01)
[2020-10-21] MEDS: cefOXitin 1,000 MG in Water for inj. (sterile) 10 ML IVP SCH ×2 (17:28→23:09)
[2020-10-21] MEDS: Gabapentin 300 MG CAPSULE PO SCH (20:00)
[2020-10-22] MEDS: *HR* Heparin 5,000 UNIT/ML VIAL SQ SCH ×2 (00:17→14:06)
[2020-10-22] MEDS: Acetaminophen IV 1,000 MG/100 ML BAG IVPB SCH ×4 (00:18→19:53)
[2020-10-22] MEDS: Insulin LISPRO 300 UNITS/3 ML VIAL SUBQ SCH ×4 (00:19→17:23)
[2020-10-22 07:00] LABS: Basophils % 0.1 %; Eosinophils % 0.1 %; Hematocrit 44.5 % (37.5-50.1); Hemoglobin 14.3 g/dL (12.9-16.9); Immature Granulocytes % 0.3 % (0-4); Lymphocytes # 1.4 K/mcL (0.6-4.6); Mean Corpuscular HGB Conc 32.1 g/dL (31.6-35.5); Mean Corpuscular Hemoglobin 26.7 pg (28.0-33.3); Mean Corpuscular Volume 83.2 fL (83.0-100.0); Mean Platelet Volume 10.2 fL (9.4-12.4); Monocytes # 0.7 K/mcL (0.0-1.3); Monocytes % 10.8 %; Neutrophils # 4.6 K/mcL (1.6-8.9); Platelet Count 216 K/mcL (140-400); Red Blood Count 5.35 M/mcL (4.19-5.50); Red Cell Distribution Width 17.2 % (11.5-14.5); Segmented Neutrophils % 67.7 %; White Blood Count 6.9 K/mcL (4.3-11.1)
[2020-10-22 07:19] LABS: BUN/Creatinine Ratio 21 (6-26); Blood Urea Nitrogen 21 mg/dL (8-23); Calcium 8.9 mg/dL (8.6-10.3); Carbon Dioxide 27 mEq/L (23-29); Chloride 106 mEq/L (98-107); Glucose 121 mg/dL (70-105); Osmolality,Calculated 290 (280-300); Potassium 3.3 mEq/L (3.5-5.1); Sodium 138 mEq/L (136-145); eGFR For African Americans > 60 (> 60); eGFR For Non-African Americans > 60 (> 60)
[2020-10-22] MEDS: 0.9 % Sodium Chloride 1,000 ML IVC SCH ×2 (10:39→19:57)
[2020-10-22] MEDS: Gabapentin 300 MG CAPSULE PO SCH ×2 (10:40→19:58)
[2020-10-22] MEDS: *HR* Pioglitazone 30 MG TABLET PO SCH (10:40)
[2020-10-22] MEDS: Pantoprazole 40 MG VIAL IVP SCH (10:41)
[2020-10-23] MEDS: *HR* HYDROmorphone 20 MG/20 ML PCA IVC PRN ×2 (00:26→05:24)
[2020-10-23] MEDS: Acetaminophen IV 1,000 MG/100 ML BAG IVPB SCH ×4 (02:05→18:02)
[2020-10-23] MEDS: *HR* Heparin 5,000 UNIT/ML VIAL SQ SCH ×2 (02:05→12:31)
[2020-10-23] MEDS: 0.9 % Sodium Chloride 1,000 ML IVC SCH (05:31)
[2020-10-23 06:06] LABS: BUN/Creatinine Ratio 20 (6-26); Blood Urea Nitrogen 17 mg/dL (8-23); Calcium 8.9 mg/dL (8.6-10.3); Carbon Dioxide 26 mEq/L (23-29); Chloride 106 mEq/L (98-107); Glucose 125 mg/dL (70-105); Osmolality,Calculated 283 (280-300); Potassium 3.6 mEq/L (3.5-5.1); Sodium 135 mEq/L (136-145); eGFR For African Americans > 60 (> 60); eGFR For Non-African Americans > 60 (> 60)
[2020-10-23] MEDS: cefOXitin 1,000 MG in Water for inj. (sterile) 10 ML IVP SCH (07:06)
[2020-10-23] MEDS: Insulin LISPRO 300 UNITS/3 ML VIAL SUBQ SCH ×5 (07:06→21:07)
[2020-10-23] MEDS ORDERED: Furosemide 40 MG/4 ML VIAL IVP ONE (09:02)
[2020-10-23] MEDS: Pantoprazole 40 MG VIAL IVP SCH (10:37)
[2020-10-23] MEDS: Gabapentin 300 MG CAPSULE PO SCH ×2 (10:43→21:05)
[2020-10-23] MEDS: *HR* Pioglitazone 30 MG TABLET PO SCH (10:44)
[2020-10-23 10:51] LABS: % Iron Saturation 8 % (20-55); Iron 26 mcg/dL (65-175); Transferrin 226 mg/dL (203-362)
[2020-10-23 11:18] LABS: Estimated Average Glucose 151 mg/dl; Hemoglobin A1C 6.9 %
[2020-10-23] MEDS: Ketorolac 15 MG/ML VIAL IVP SCH ×2 (12:31→18:02)
[2020-10-23] MEDS: Iron Sucrose Complex 250 MG in 0.9 % Sodium Chloride 250 ML IVPB SCH (12:57)
[2020-10-23] MEDS: D5% in 0.45% NACL w KCl 20 MEQ/1,000 ML MLS IVC SCH (15:11)
[2020-10-24] MEDS: Acetaminophen IV 1,000 MG/100 ML BAG IVPB SCH ×3 (01:03→11:58)
[2020-10-24] MEDS: Ketorolac 15 MG/ML VIAL IVP SCH ×2 (01:04→06:43)
[2020-10-24] MEDS: *HR* Heparin 5,000 UNIT/ML VIAL SQ SCH (01:04)
[2020-10-24] MEDS ORDERED: D5% in 0.45% NACL w KCl 20 MEQ/1,000 ML MLS IVC SCH (07:25)
[2020-10-24] MEDS: Insulin LISPRO 300 UNITS/3 ML VIAL SUBQ SCH ×4 (08:00→21:05)
[2020-10-24 08:11] LABS: Basophils % 0.5 %; Eosinophils # 0.1 K/mcL (0.0-0.6); Eosinophils % 3.5 %; Hematocrit 39.3 % (37.5-50.1); Immature Granulocytes % 0.2 % (0-4); Lymphocytes # 0.8 K/mcL (0.6-4.6); Lymphocytes % 19.8 %; Mean Corpuscular HGB Conc 31.6 g/dL (31.6-35.5); Mean Corpuscular Hemoglobin 26.4 pg (28.0-33.3); Mean Corpuscular Volume 83.6 fL (83.0-100.0); Mean Platelet Volume 9.5 fL (9.4-12.4); Monocytes # 0.4 K/mcL (0.0-1.3); Monocytes % 10.6 %; Neutrophils # 2.6 K/mcL (1.6-8.9); Platelet Count 149 K/mcL (140-400); Red Cell Distribution Width 16.8 % (11.5-14.5); Segmented Neutrophils % 65.4 %
[2020-10-24 08:12] LABS: Hemoglobin 12.4 g/dL (12.9-16.9)
[2020-10-24] MEDS: *HR* Pioglitazone 30 MG TABLET PO SCH (08:12)
[2020-10-24] MEDS: Pantoprazole 40 MG VIAL IVP SCH (08:12)
[2020-10-24] MEDS: Gabapentin 300 MG CAPSULE PO SCH ×2 (08:13→19:29)
[2020-10-24] MEDS: Iron Sucrose Complex 250 MG in 0.9 % Sodium Chloride 250 ML IVPB SCH (08:17)
[2020-10-24 08:34] LABS: BUN/Creatinine Ratio 19 (6-26); Blood Urea Nitrogen 14 mg/dL (8-23); Calcium 8.9 mg/dL (8.6-10.3); Carbon Dioxide 25 mEq/L (23-29); Chloride 108 mEq/L (98-107); Glucose 130 mg/dL (70-105); Magnesium 1.7 mg/dL (1.6-2.6); Osmolality,Calculated 284 (280-300); Phosphorous 1.6 mg/dL (2.7-4.5); Potassium 3.6 mEq/L (3.5-5.1); Sodium 136 mEq/L (136-145); eGFR For African Americans > 60 (> 60); eGFR For Non-African Americans > 60 (> 60)
[2020-10-24] MEDS: D5% in 0.45% NACL w KCl 20 MEQ/1,000 ML MLS IVC SCH (08:51)
[2020-10-24] MEDS: Apixaban 5 MG TABLET PO SCH ×2 (09:16→19:29)
[2020-10-24] MEDS: Losartan/HCTZ 50-12.5 TABLET PO SCH (13:42)
[2020-10-24] MEDS ORDERED: Ipratropium/Albuterol Neb 3 ML IH PRN (14:38)
[2020-10-24] MEDS ORDERED: Furosemide 20 MG/2 ML VIAL IVP ONE (14:41)
[2020-10-24 15:21] LABS: Hematocrit 40.8 % (37.5-50.1); Hemoglobin 12.9 g/dL (12.9-16.9)
[2020-10-24] MEDS ORDERED: Saline Nasal Spray 44 ML BOTTLE NS PRN (22:34)
[2020-10-24] MEDS ORDERED: Artificial Tears SOLN 15 ML BOTTLE BOTH EYES PRN (22:34)
[2020-10-24] MEDS ORDERED: Melatonin 3 MG TABLET PO PRN (22:44)
[2020-10-25 07:32] VITALS: BP 144/83
[2020-10-25] MEDS: Insulin LISPRO 300 UNITS/3 ML VIAL SUBQ SCH (07:32)
[2020-10-25] MEDS: Apixaban 5 MG TABLET PO SCH (07:35)
[2020-10-25] MEDS: Gabapentin 300 MG CAPSULE PO SCH (07:35)
[2020-10-25] MEDS: Losartan/HCTZ 50-12.5 TABLET PO SCH (07:35)
[2020-10-25] MEDS: Iron Sucrose Complex 250 MG in 0.9 % Sodium Chloride 250 ML IVPB SCH (07:40)
[2020-10-25] MEDS ORDERED: Multivit/Ca/Min/Fe/FA 1 TAB TABLET PO SCH (09:00)
[2020-10-25] MEDS ORDERED: Furosemide 20 MG/2 ML VIAL IVP SCH (09:00)
[2020-10-25 09:31] LABS: Basophils % 0.7 %; Eosinophils # 0.2 K/mcL (0.0-0.6); Eosinophils % 3.4 %; Hemoglobin 14.8 g/dL (12.9-16.9); Immature Granulocytes % 0.2 % (0-4); Lymphocytes # 1.2 K/mcL (0.6-4.6); Lymphocytes % 26.2 %; Mean Corpuscular HGB Conc 32.9 g/dL (31.6-35.5); Mean Corpuscular Hemoglobin 26.8 pg (28.0-33.3); Mean Corpuscular Volume 81.4 fL (83.0-100.0); Mean Platelet Volume 10.4 fL (9.4-12.4); Monocytes # 0.4 K/mcL (0.0-1.3); Monocytes % 8.1 %; Neutrophils # 2.7 K/mcL (1.6-8.9); Platelet Count 167 K/mcL (140-400); Red Blood Count 5.53 M/mcL (4.19-5.50); Red Cell Distribution Width 16.8 % (11.5-14.5); Segmented Neutrophils % 61.4 %; White Blood Count 4.4 K/mcL (4.3-11.1)
[2020-10-25 09:50] LABS: BUN/Creatinine Ratio 11 (6-26); Blood Urea Nitrogen 9 mg/dL (8-23); Carbon Dioxide 26 mEq/L (23-29); Chloride 106 mEq/L (98-107); Glucose 131 mg/dL (70-105); Magnesium 1.7 mg/dL (1.6-2.6); Osmolality,Calculated 290 (280-300); Phosphorous 2.1 mg/dL (2.7-4.5); Potassium 3.5 mEq/L (3.5-5.1); Sodium 140 mEq/L (136-145); eGFR For African Americans > 60 (> 60); eGFR For Non-African Americans > 60 (> 60)
[2020-10-25 10:15] LABS: Folate 9.3 ng/mL (3.0-16.0)
== END 2020-10-25 11:30 | disposition home or self-care (01) | DRG 330 ==
LOC: SAMDAY 06:42 → 3ANU 11:54
PROVIDERS: ADMIT Surgery; ATTEND Surgery